=== PATIENT | female | born 1945 | race Caucasian/White ===

== ENCOUNTER → 2017-07-12 09:12 | Outpatient (CLI) | payer MEDICARE, MEDICAID, SELFPAY ==
[2017-07-12 09:50] LABS: Add Manual Diff / Slide Review NO; Basophils Percent Auto 0.5 % (0-2); Eosinophils Percent Auto 4.5 % (2-4); Hematocrit 40.4 % (36-46); Hemoglobin 14.1 g/dL (12.0-16.0); Lymphocytes Percent Auto 38.7 % (25-40); Mean Corpuscular HGB Conc 34.9 % (30-36); Mean Corpuscular Hemoglobin 31.8 PG (26-34); Mean Corpuscular Volume 91.1 fL (80-100); Monocytes Percent Auto 10.8 % (3-14); Neutrophils Absolute Auto 2900 /uL (3000-5900); Neutrophils Percent Auto 45.5 % (50-75); Platelet Count 273 X10^3/uL (150-400); Red Blood Cell Count 4.44 X10^6/uL (4.0-5.2); Red Cell Distribution Width 13.6 % (11.6-14.8); White Blood Cell Count 6.4 X10^3/uL (4.5-11.0)
[2017-07-12 11:25] LABS: Alanine Aminotransferase 31 IU/L (9-52); Albumin 4.3 g/dL (3.5-5.0); Albumin Globulin Ratio 1.3 (1.0-2.8); Alkaline Phosphatase 80 U/L (38-126); Aspartate Aminotransferase 28 IU/L (14-36); BUN Creatinine Ratio 13.8 (6-22); Bilirubin Total 0.7 mg/dL (0.2-1.3); Blood Urea Nitrogen 11 mg/dL (7-17); Calcium 9.7 mg/dL (8.4-10.2); Carbon Dioxide 29 mmol/L (22-32); Chloride 96 mmol/L (98-107); Cholesterol 139 mg/dL (140-199); Estimated Glomerular Filt Rate > 60.0 mL/min (>60); Globulin 3.2 g/dL (1.7-4.1); Glucose 118 mg/dL (80-110); HDL Cholesterol 32 mg/dL (40-60); HEMOLYSIS < 15 (0-50); LDL Cholesterol Calculated 64 mg/dL (<100); Sodium 139 mmol/L (137-145); Total Protein 7.5 g/dL (6.3-8.2); Triglycerides 214 mg/dL (35-150)
[2017-07-12 11:35] LABS: Hemoglobin A1C% w Est Avg Glu 6.6 % (4.0-6.0)
[2017-07-12 12:01] LABS: Thyroid Stimulating Hormone 1.79 uIU/mL (0.47-4.68)
== END ==
PROVIDERS: PCP Family Medicine; Visit Provider Family Medicine
DX: E11.9 Type 2 diabetes mellitus without complications (principal); I10 Essential (primary) hypertension; E78.5 Hyperlipidemia, unspecified
CPT/HCPCS: 36415; 80053; 80061; 83036; 84443; 85025

== ENCOUNTER → 2019-01-23 10:07 | Outpatient (CLI) | payer MEDICARE, MEDICAID, SELFPAY ==
[2019-01-23 11:51] LABS: Add Manual Diff / Slide Review NO; Basophils Absolute Auto 0 /uL (0-100); Basophils Percent Auto 0.6 % (0-2); Eosinophils Absolute Auto 200 /uL (0-450); Eosinophils Percent Auto 3.6 % (2-4); Hematocrit 40.5 % (36-46); Lymphocytes Absolute Auto 2000 /uL (1100-4500); Lymphocytes Percent Auto 32.7 % (25-40); Mean Corpuscular HGB Conc 34.5 % (30-36); Mean Corpuscular Hemoglobin 31.7 PG (26-34); Mean Corpuscular Volume 91.8 fL (80-100); Monocytes Absolute Auto 600 /uL (0-900); Monocytes Percent Auto 10.4 % (3-14); Neutrophils Absolute Auto 3200 /uL (1500-7000); Neutrophils Percent Auto 52.7 % (50-75); Platelet Count 276 X10^3/uL (150-400); Red Blood Cell Count 4.41 X10^6/uL (4.0-5.2); White Blood Cell Count 6.1 X10^3/uL (4.5-11.0)
[2019-01-23 12:04] LABS: Hemoglobin A1C% w Est Avg Glu 6.1 % (4.0-6.0)
[2019-01-23 12:15] LABS: Alanine Aminotransferase 21 IU/L (<35); Albumin 4.5 g/dL (3.5-5.0); Albumin Globulin Ratio 1.7 (1.0-2.8); Alkaline Phosphatase 63 U/L (38-126); Aspartate Aminotransferase 27 IU/L (14-36); BUN Creatinine Ratio 18.6 (6-22); Bilirubin Total 0.7 mg/dL (0.2-1.3); Blood Urea Nitrogen 13 mg/dL (7-17); Calcium 9.8 mg/dL (8.4-10.2); Carbon Dioxide 30 mmol/L (22-32); Chloride 93 mmol/L (98-107); Cholesterol 159 mg/dL (140-199); Estimated Glomerular Filt Rate > 60.0 mL/min (>60); Globulin 2.6 g/dL (1.7-4.1); Glucose 110 mg/dL (80-110); HDL Cholesterol 38 mg/dL (40-60); HEMOLYSIS < 15 (0-50); LDL Cholesterol Calculated 72 mg/dL (<100); Potassium 4.2 mmol/L (3.4-5.1); Sodium 133 mmol/L (137-145); Total Protein 7.1 g/dL (6.3-8.2); Triglycerides 243 mg/dL (35-150)
[2019-01-23 12:46] LABS: Thyroid Stimulating Hormone 1.09 uIU/mL (0.47-4.68)
[2019-01-23 15:15] LABS: Creatinine Urine Random 78.1 mg/dL
[2019-01-23 15:18] LABS: Microalbumi Creatinin Ratio Ur 7.6 ug/mg CR (<30); Microalbumin Urine Random < 0.6 mg/dL (0-1.6)
== END ==
PROVIDERS: PCP Family Medicine; Visit Provider Family Medicine
DX: Z13.29 Encounter for screening for other suspected endocrine disorder (principal); E11.9 Type 2 diabetes mellitus without complications; E78.5 Hyperlipidemia, unspecified; I10 Essential (primary) hypertension
CPT/HCPCS: 36415; 80053; 80061; 82043; 82570; 83036; 84443; 85025

== ENCOUNTER → 2019-11-05 07:16 | Outpatient (CLI) | payer MEDICARE, MEDICAID, SELFPAY ==
[2019-11-05 08:11] LABS: Hemoglobin A1C% w Est Avg Glu 6.7 % (4.0-6.0)
[2019-11-05 08:18] LABS: Add Manual Diff / Slide Review NO; Basophils Absolute Auto 0 /uL (0-100); Basophils Percent Auto 0.6 % (0-2); Eosinophils Absolute Auto 200 /uL (0-450); Eosinophils Percent Auto 3.6 % (2-4); Hemoglobin 13.8 g/dL (12.0-16.0); Lymphocytes Absolute Auto 2200 /uL (1100-4500); Lymphocytes Percent Auto 34.9 % (25-40); Mean Corpuscular HGB Conc 34.5 % (30-36); Mean Corpuscular Hemoglobin 32.1 PG (26-34); Monocytes Absolute Auto 700 /uL (0-900); Monocytes Percent Auto 10.2 % (3-14); Neutrophils Absolute Auto 3300 /uL (1500-7000); Neutrophils Percent Auto 50.7 % (50-75); Platelet Count 260 X10^3/uL (150-400); Red Cell Distribution Width 13.6 % (11.6-14.8); White Blood Cell Count 6.4 X10^3/uL (4.5-11.0)
[2019-11-05 08:21] LABS: Alanine Aminotransferase 24 IU/L (<35); Albumin 4.4 g/dL (3.5-5.0); Albumin Globulin Ratio 1.6 (1.0-2.8); Alkaline Phosphatase 73 U/L (38-126); Aspartate Aminotransferase 26 IU/L (14-36); Bilirubin Total 0.8 mg/dL (0.2-1.3); Blood Urea Nitrogen 10 mg/dL (7-17); Calcium 9.3 mg/dL (8.4-10.2); Carbon Dioxide 30 mmol/L (22-32); Chloride 93 mmol/L (98-107); Cholesterol 121 mg/dL (140-199); Estimated Glomerular Filt Rate > 60.0 mL/min (>60); Globulin 2.8 g/dL (1.7-4.1); Glucose 141 mg/dL (80-110); HDL Cholesterol 36 mg/dL (40-60); HEMOLYSIS < 15 (0-50); LDL Cholesterol Calculated 39 mg/dL (<100); Potassium 3.6 mmol/L (3.4-5.1); Sodium 134 mmol/L (137-145); Total Protein 7.2 g/dL (6.3-8.2); Triglycerides 228 mg/dL (35-150)
[2019-11-05 08:52] LABS: Thyroid Stimulating Hormone 1.85 uIU/mL (0.47-4.68)
[2019-11-05 10:38] LABS: Creatinine Urine Random 167.5 mg/dL
[2019-11-05 10:44] LABS: Microalbumin Urine Random < 0.6 mg/dL (0-1.6)
== END ==
PROVIDERS: PCP Family Medicine; Referring Provider Family Medicine; Visit Provider Family Medicine
DX: E11.9 Type 2 diabetes mellitus without complications (principal); I10 Essential (primary) hypertension; Z86.73 Personal history of transient ischemic attack (TIA), and cerebral infarction without residual deficits
CPT/HCPCS: 36415; 80053; 80061; 82043; 82570; 83036; 84443; 85025

== ENCOUNTER → 2020-01-26 07:45 | Outpatient (CLI) | payer MEDICARE, MEDICAID, SELFPAY ==
[2020-01-26 09:15] LABS: Hemoglobin A1C% w Est Avg Glu 6.5 % (4.0-6.0)
[2020-01-26 09:29] LABS: BUN Creatinine Ratio 23.9 (6-22); Blood Urea Nitrogen 16 mg/dL (7-17); Estimated Glomerular Filt Rate > 60.0 mL/min (>60)
== END ==
PROVIDERS: PCP Family Medicine; Referring Provider Neurological Surgery; Visit Provider Neurological Surgery
DX: E11.9 Type 2 diabetes mellitus without complications (principal)
CPT/HCPCS: 82565; 83036; 84520

== ENCOUNTER → 2020-01-28 15:10 | Outpatient (CLI) | payer MEDICARE, MEDICAID, SELFPAY ==
--- NOTE | 2020-01-28 15:13 | DI.CT.S_ITS ---
PROCEDURE: CT ANGIO HEAD AND NECK INDICATIONS: Cerebral aneurysm, nonruptured TECHNIQUE: Pre-contrast 4.5 mm thick sections acquired from the foramen magnum to the vertex. After the administration of intravenous contrast, 1 mm thick sections acquired from the aortic arch through the [place] of Wu. Post-contrast 4.5 mm thick sections then re-acquired from the foramen magnum to the vertex. 3-dimensional tavqcrc-hgdzrggqb-igqjzbmgey (MIP) and/or volume rendering reformats were acquired of the central intracranial vasculature and neck separately. COMPARISON: [facility], CT, ANGIO HEAD, 11/12/2016, 15:42. [facility], CT, HEAD WITHOUT CONTRAST, 12/08/2016, 7:30. FINDINGS: Image quality: Excellent. BRAIN: CSF spaces: Ventricles are normal in size and shape. Basal cisterns are patent. No extra-axial fluid collections. Brain: No midline shift. No intracranial bleeds or masses. Herron-white matter interface appears intact. Skull and face: Left-sided craniotomy changes are seen. Calvarium and facial bones appear intact, without suspicious lesions. Orbits appear normal. Sinuses: Sinuses and mastoids are clear. HEAD CT ANGIOGRAPHY: Anterior circulation: The right intracranial internal carotid artery is within normal limits. The left intracranial internal carotid artery demonstrates no significant flow. The flow within the paired anterior cerebral arteries is normal and symmetric. The flow within the middle cerebral arteries is asymmetric and prominently decreased on the left.. The anterior communicating artery is seen. No aneurysms are seen. Posterior circulation: Visualized portions of the vertebral arteries demonstrate normal caliber, and join to form a normal appearing basilar artery. Flow within the posterior cerebral arteries is normal and symmetric. No aneurysms are seen. NECK CT ANGIOGRAPHY: Carotid system: The great vessels demonstrate a conventional anatomy as they arise from the aortic arch. The origins of the common carotid arteries appear patent. The common carotid arteries demonstrate normal caliber and courses. There is complete occlusion of the left internal carotid artery just beyond its origin. There is a thrombosed left internal carotid artery stent. Atherosclerotic irregularity is seen involving the right proximal internal carotid artery, yet without a hemodynamically significant stenosis seen. The more distal right internal carotid artery demonstrates tortuosity. Posterior circulation: The origins of the vertebral arteries both appear widely patent. The more superior extracranial portions of both vertebral arteries also demonstrate normal courses and calibers. They join to form a normal appearing basilar artery. Soft tissues: Visualized neck soft tissues demonstrate no suspicious abnormalities. Bones: No suspicious bony lesions. Visualized cervical spine appears normally aligned. Prominent lower cervical spine degenerative changes are seen. IMPRESSION: Complete occlusion of the left internal carotid artery just beyond its origin. Asymmetric flow within the middle cerebral arteries, prominently decreased on the left. Prominent lower cervical spine degenerative changes are noted. Any quantitative measurements of stenosis were performed using NASCET criteria. Dictated by: Rolando Brito M.D. on 01/28/2020 at 15:50 Approved by: Rolando Brito M.D. on 01/28/2020 at 15:54
== END ==
PROVIDERS: PCP Family Medicine; Referring Provider Neurological Surgery; Visit Provider Neurological Surgery
DX: I67.1 Cerebral aneurysm, nonruptured (principal); I65.22 Occlusion and stenosis of left carotid artery; T82.868A Thrombosis due to vascular prosthetic devices, implants and grafts, initial encounter; M47.812 Spondylosis without myelopathy or radiculopathy, cervical region; Z98.890 Other specified postprocedural states
CPT/HCPCS: 70496; 70498

== ENCOUNTER → 2020-04-16 10:47 | Outpatient (CLI) | payer MEDICARE, MEDICAID, SELFPAY ==
[2020-04-16] MEDS: COVID-19 VACC, Ad26(JANSSEN)/PF 0.5 ML IM (11:08)
== END ==
PROVIDERS: PCP Family Medicine; Visit Provider Internal Medicine
DX: Z23 Encounter for immunization (principal)
CPT/HCPCS: 0031A; 91303

== ENCOUNTER → 2020-06-20 15:09 | Outpatient (CLI) | payer MEDICARE, MEDICAID, SELFPAY ==
--- NOTE | 2020-06-20 15:11 | DI.RAD.S_ITS ---
PROCEDURE: XR LUMBAR SPINE MIN 4V INDICATIONS: low back pain, bilateral hip pain TECHNIQUE: 5 views of the lumbar spine were acquired, including bilateral oblique views. COMPARISON: None. FINDINGS: Bones: 5 nonrib-bearing vertebrae are present. There is normal bony alignment. No vertebral body compression fractures. No suspicious bony lesions. Degenerative disc disease is present along the thoracolumbar junction and lumbosacral spine. There is mild chronic appearing anterior wedging at T11 and moderate T11-T12 disc space narrowing. Minimal degenerative disc height narrowing is present at T12-L1, and moderate such changes seen at L2-L3 and L3-L4 and to a slightly greater degree with slight anterolisthesis at L4-L5. Facet osteoarthritis becomes progressively more prominent from L3 inferiorly and moderately severe at L4-5 and L5-S1. Soft tissues: Overlying bowel gas pattern is normal. No suspicious soft tissue calcifications. Oblique images: No pars defects. IMPRESSION: No acute trauma found. Degenerative disc disease and facet osteoarthritis is moderate in severity overall and becomes progressively more prominent over the lower half of the lumbosacral spine. There is a chronic appearing mild to moderate wedge compression fracture at T11. A comparison plain film is not available that includes this area but it does appear longstanding. Significant spinal and foraminal stenosis likely is present from L4 through S1. Dictated by: Ehsan Sim M.D. on 06/20/2020 at 15:47 Approved by: Ehsan Sim M.D. on 06/20/2020 at 15:50
--- NOTE | 2020-06-20 15:11 | DI.RAD.S_ITS ---
PROCEDURE: XR HIP W PEL IF DONE RYAN MIN 4V INDICATIONS: low back pain, bilateral hip pain TECHNIQUE: AP pelvis with lateral view(s) of the bilateral hip(s). COMPARISON: None. FINDINGS: Bones: No fractures or dislocations. Pelvic ring appears intact. No suspicious bony lesions. Soft tissues: The visualized bowel gas pattern is normal. No suspicious soft tissue calcifications. IMPRESSION: There is a mild degree of joint space narrowing bilaterally symmetric, consistent with degenerative osteoarthritic change and no sign of trauma. Dictated by: Ehsan Sim M.D. on 06/20/2020 at 15:46 Approved by: Ehsan Sim M.D. on 06/20/2020 at 15:46
== END ==
PROVIDERS: PCP Family Medicine; Referring Provider Family Medicine; Visit Provider Family Medicine
DX: M25.551 Pain in right hip (principal); M25.552 Pain in left hip; M54.5 Low back pain; M48.54XA Collapsed vertebra, not elsewhere classified, thoracic region, initial encounter for fracture; M51.36 Other intervertebral disc degeneration, lumbar region; M48.061 Spinal stenosis, lumbar region without neurogenic claudication; M47.816 Spondylosis without myelopathy or radiculopathy, lumbar region; M47.817 Spondylosis without myelopathy or radiculopathy, lumbosacral region
CPT/HCPCS: 72110; 73522

== ENCOUNTER → 2020-07-15 08:36 | Outpatient (CLI) | payer MEDICARE, MEDICAID, SELFPAY ==
[2020-07-15 10:16] LABS: Hemoglobin A1C% w Est Avg Glu 6.5 % (4.0-6.0)
[2020-07-15 10:53] LABS: Alanine Aminotransferase 23 IU/L (<35); Albumin Globulin Ratio 1.5 (1.0-2.8); Alkaline Phosphatase 71 U/L (38-126); Aspartate Aminotransferase 27 IU/L (14-36); BUN Creatinine Ratio 14.3 (6-22); Bilirubin Total 0.5 mg/dL (0.2-1.3); Blood Urea Nitrogen 11 mg/dL (7-17); Calcium 9.7 mg/dL (8.4-10.2); Carbon Dioxide 29 mmol/L (22-32); Chloride 96 mmol/L (98-107); Cholesterol 118 mg/dL (140-199); Estimated Glomerular Filt Rate > 60.0 mL/min (>60); Globulin 2.6 g/dL (1.7-4.1); Glucose 113 mg/dL (80-110); HDL Cholesterol 38 mg/dL (40-60); HEMOLYSIS < 15 (0-50); LDL Cholesterol Calculated 51 mg/dL (<100); Sodium 134 mmol/L (137-145); Total Protein 6.6 g/dL (6.3-8.2); Triglycerides 147 mg/dL (35-150)
[2020-07-15 11:54] LABS: Creatinine Urine Random 169.4 mg/dL
[2020-07-15 11:58] LABS: Microalbumi Creatinin Ratio Ur 4.7 ug/mg CR (<30); Microalbumin Urine Random 0.8 mg/dL (0-1.6)
== END ==
PROVIDERS: PCP Family Medicine; Referring Provider Family Medicine; Visit Provider Family Medicine
DX: E11.9 Type 2 diabetes mellitus without complications (principal)
CPT/HCPCS: 36415; 80053; 80061; 82043; 82570; 83036

== ENCOUNTER → 2020-09-04 09:26 | Outpatient (CLI) | payer MEDICARE, MEDICAID, SELFPAY | PROVIDERS: PCP Family Medicine; Referring Provider Physical Medicine & Rehabilitation; Visit Provider Physical Medicine & Rehabilitation | DX: M43.16 Spondylolisthesis, lumbar region (principal); Z53.8 Procedure and treatment not carried out for other reasons ==

== ENCOUNTER → 2020-09-08 17:19 | Outpatient (CLI) | payer MEDICARE, MEDICAID, SELFPAY ==
--- NOTE | 2020-09-08 17:22 | DI.MRI.S_ITS ---
PROCEDURE: MR LUMBAR SPINE WO CON INDICATIONS: SPONDYLOLISTTHESIS LUMBAR AREA TECHNIQUE: Noncontrast sagittal T1 spin echo and T2 fast echo, sagittal STIR, axial T1 and T2 fast spin echo through the lumbar spine. In cases with scoliosis, additional coronal T2 fast spin echo may be performed. COMPARISON: None. FINDINGS: Image quality: Excellent. Alignment and Curvature: There is mild L4-L5 anterolisthesis secondary to facet hypertrophy. Bone Marrow: Reactive endplate changes noted adjacent the L2-L3, L3-L4 and L4-L5 discs. No acute vertebral body compression fractures. Spinal Cord: Conus medullaris terminates at the L1 level. Visualized cord demonstrates normal signal and size. Paraspinous Soft Tissues: No paravertebral masses. T12-L1: Loss of disc signal. Mild, diffuse disc bulge. Mild narrowing of the central canal. No neural foraminal narrowing. No neural compression. L1-L2: Loss of disc signal. Moderate, diffuse disc bulge. Mild bilateral facet hypertrophy. Mild to moderate narrowing of the central canal. Mild bilateral neural foraminal narrowing. No neural compression. L2-L3: Loss of disc signal and height. Moderate, diffuse disc bulge. Left central disc extrusion. Mild bilateral facet hypertrophy. Severe narrowing of the central canal with compression of the nerve roots of the cauda equina. Moderate bilateral neural foraminal narrowing. L3-L4: Loss of disc signal and height. Mild, diffuse disc bulge. Mild bilateral facet hypertrophy. Mild to moderate narrowing of the central canal. Moderate bilateral neural foraminal narrowing. No neural compression. L4-L5: Loss of disc signal and height. Mild, diffuse disc bulge. Severe bilateral facet hypertrophy. Moderate ligamentum flavum hypertrophy. Severe narrowing of the central canal with compression of the nerve roots of the cauda equina. Mild to moderate bilateral neural foraminal narrowing. L5-S1: Loss of disc signal. Mild, diffuse disc bulge. Moderate bilateral facet hypertrophy. No central stenosis. Mild bilateral neural foraminal narrowing. No neural compression. IMPRESSION: 1. Grade 1 L4-L5 degenerative spondylolisthesis. 2. Multilevel degenerative disc disease. 3. Multilevel facet arthropathy. 4. Severe L2-L3 and L4-L5 central canal narrowing with compression of the nerve roots of the cauda equina. 5. No severe neural foraminal narrowing. 6. Large left central L2-L3 disc extrusion which causes severe narrowing of the central canal with compression of the traversing nerve roots of the cauda equina. Dictated by: Lorrie Alex MD, PhD on 09/09/2020 at 10:53 Approved by: Lorrie Alex MD, PhD on 09/09/2020 at 10:58
== END ==
PROVIDERS: PCP Family Medicine; Referring Provider Physical Medicine & Rehabilitation; Visit Provider Physical Medicine & Rehabilitation
DX: M43.16 Spondylolisthesis, lumbar region (principal); M51.36 Other intervertebral disc degeneration, lumbar region; M51.37 Other intervertebral disc degeneration, lumbosacral region; M47.816 Spondylosis without myelopathy or radiculopathy, lumbar region; M47.817 Spondylosis without myelopathy or radiculopathy, lumbosacral region; M48.061 Spinal stenosis, lumbar region without neurogenic claudication; M48.07 Spinal stenosis, lumbosacral region; M51.26 Other intervertebral disc displacement, lumbar region
CPT/HCPCS: 72148

== ENCOUNTER → 2020-09-22 07:46 | Outpatient (CLI) | payer MEDICARE, MEDICAID, SELFPAY ==
[2020-09-22 12:06] LABS: COVID19 -Nasal RAPID Negative (Negative)
== END ==
PROVIDERS: PCP Family Medicine; Visit Provider Physical Medicine & Rehabilitation
DX: Z20.822 Contact with and (suspected) exposure to COVID-19 (principal)
CPT/HCPCS: 87635; C9803

== ENCOUNTER 2020-09-23 07:17 | Outpatient (CLI) | payer MEDICARE, MEDICAID, SELFPAY ==
[2020-09-23] VITALS (11 sets, daily range): BP systolic 133–172; BP diastolic 63–92; PULSE 24–89; RESP 11–96; TEMP 36.2; O2SAT 95–100
--- NOTE | 2020-09-23 07:20 | DI.RAD.S_ITS ---
PROCEDURE: PAIN L/S TRANSFORAM INJECT RYAN COMPARISON: None. INDICATIONS: SPONDYLOSIS FINDINGS: Needle tip localization bilaterally for L2-L3 transforaminal epidural steroid injection. IMPRESSION: Successful needle tip localization as discussed, for transforaminal epidural steroid injection. Dictated by: Ehsan Sim M.D. on 09/23/2020 at 9:04 Approved by: Ehsan Sim M.D. on 09/23/2020 at 9:04
[2020-09-23] MEDS: MIDAZOLAM 5 MG/5 ML VIAL IV (08:15)
[2020-09-23] MEDS: fentaNYL 100 MCG/2 ML INJ 50 MCG IV (08:15)
[2020-09-23] MEDS: IOPAMIDOL 15 ML VIAL 3 ML INJ (08:24)
[2020-09-23] MEDS: BETAMETHASONE 30 MG/5 ML MDV 12 MG INJ (08:25)
[2020-09-23] MEDS: DEXAMETHASONE 10 MG/ML VIAL 20 MG INJ (08:25)
[2020-09-23] MEDS: BUPIVACAINE 0.25% (PF) VIAL 2 ML INJ (08:25)
[2020-09-23] MEDS: LIDOCAINE 1% 20 ML 5 ML INJ (08:25)
--- NOTE | 2020-09-23 08:39 | PM.PROC.IR.1 ---
Date/Time/Diagnoses Date of procedure: 09/23/20 Time of procedure: 08:39 Pre-procedure diagnosis: 1. FORAMINAL STENOSIS WITH LE SYMPTOMS Post-procedure diagnosis: same Procedure Notes Procedure: 1. FLUOROSCOPICALLY GUIDED CONTRAST CONTROLLED TRANSFORAMINAL EPIDURAL STEROID INJECTION - BILATERAL L2/3 TFESI Indications: Elsi is referred by Dr. Toth for treatment of Foraminal Stenosis with bilateral LE Symptoms Physician: Reza Stein Total Fluoroscopy time (seconds): 15 Total sedation minutes: 19 Complications: none Procedure in detail & Post-procedure care: FINDINGS Foraminal Nerve Root Compression secondary to disc disease and facet hypertrophy DESCRIPTION OF PROCEDURE Following review of allergy and review of potential side effects and complications, including, but not necessarily limited to, infection, allergic reaction, local tissue breakdown, stroke, temporary or permanent nerve injury, paralysis, and possible , the patient indicated that the patient understood and agreed to proceed. An informed consent document was signed by the patient, witnessed by a nurse, and placed in the patient's chart. Additionally, other treatment options including medications, modalities, and physical therapy were reviewed with the patient. After review of previous anaesthesic history and IV conscious sedation the patient was deemed safe to proceed with today?s procedure with IV conscious sedation as ASA class II designation. Safety time-out was performed to confirm patient ID, procedure to be performed and site of procedure. IV sedation was accomplished with a combination of 2mg of Versed and 50mcg of Fentanyl was administered by the RN after DO order, titrated to patient comfort during the course of the procedure while the patient remained responsive to all verbal commands In the prone position following sterile prep and drape of the lumbar region, the right L2/3 posterior neuroforamen was identified fluoroscopically. The skin was anesthetized via a 25-gauge 1.5-inch needle with 1% lidocaine solution. At this point, a 25-gauge 3.5-inch spinal needle was atraumatically introduced and advanced under fluoroscopic guidance through the posterior right L2/3 neuroforamen to approximately the anterior aspect of the canal. Depth was confirmed on lateral view. Following negative aspiration, injection of approximately 1.5cc of Isovue 200 under live fluoroscopy in the AP view confirmed excellent flow along the nerve root, into the epidural space without vascular or intrathecal uptake observed Radiological data, including multiple fluoroscopic views of the lumbosacral spine, reveal a spinal needle at the right L2/3 posterior neuroforamen. Subsequent views show flow of contrast material flowing superiorly and inferiorly along the nerve root confirming epidural flow. Subsequently, a test dose of 1.5cc of 1% lidocaine solution was administered and patient was observed for two minutes for signs or symptoms of complications, including abdominal pain, shortness of breath, bilateral upper or lower extremity weakness, nausea and vomiting, prior to steroid injection. At this point, a total of 3cc or 20mg of dexamethasone and 6mg betamethasone was injected without incident. Attention was then refocused to the left L2/3 level where the identical procedure was replicated. The procedure tolerated the procedure well without signs or symptoms of complications prior to transfer to the recovery area continued monitoring without incident. The patient was then transferred to the recovery area where they were observed for an appropriate time after the injection. The patient reported a VAS score of 8 prior to the procedure and a post-procedure VAS of 0. POST OP INSTRUCTIONS The patient was provided a Pain Log to continue to record their response to the target-specific procedure prior to follow-up visit with their referring physician. Additionally, specific post-injection care instructions and a contact number to our office were provided if concerns arise regarding possible complications associated with the procedure are suspected.
--- NOTE | 2020-09-23 10:04 | PC.NURSE ---
Pt experiences numbness to BLE and is unable to ambulated without a 2PA. Pt was assisted to the ground by Minnie Martinez CNA at approx 0935 after an attempt was made to try to have pt march in place and ambulate a few steps. This rn aided in returning her to her chair. We will continue q15 min attempts.
--- NOTE | 2020-09-23 13:16 | PC.NURSE ---
This is a continuation of the note timed 1004. At 1045, pt was able to move herself to a standing position, walk in place and take several steps forward and back to . Pt was cleared for discharge at this point
== END 2020-09-23 11:09 | disposition home or self-care (01) ==
LOC: RAD 07:19
PROVIDERS: PCP Family Medicine; Referring Provider Physical Medicine & Rehabilitation; Visit Provider Physical Medicine & Rehabilitation
DX: M48.061 Spinal stenosis, lumbar region without neurogenic claudication (principal); M51.16 Intervertebral disc disorders with radiculopathy, lumbar region
CPT/HCPCS: 64483; 99152; J0702; J1100; J2250; J3010

== ENCOUNTER → 2020-10-20 10:32 | Outpatient (CLI) | payer MEDICARE, MEDICAID, SELFPAY ==
[2020-10-20 14:59] LABS: COVID19 -Nasal RAPID Negative (Negative)
== END ==
PROVIDERS: PCP Family Medicine; Visit Provider Physical Medicine & Rehabilitation
DX: Z20.822 Contact with and (suspected) exposure to COVID-19 (principal)
CPT/HCPCS: 87635; C9803

== ENCOUNTER 2020-10-21 14:32 | Outpatient (CLI) | payer MEDICARE, MEDICAID, SELFPAY ==
[2020-10-21] VITALS (7 sets, daily range): BP systolic 100–141; BP diastolic 55–86; PULSE 76–85; RESP 12–26; TEMP 36.2; O2SAT 92–100
--- NOTE | 2020-10-21 14:33 | DI.RAD.S_ITS ---
PROCEDURE: PAIN L INTERLAMINAR/CAUDAL INJ INDICATIONS: SPONDYLOSIS COMPARISON: [facility], XA, PAIN L/S TRANSFORAM INJECT RYAN, 09/23/2020, 8:23. FINDINGS: Fluoroscopic spot filming was performed to verify placement of a spinal needle at the L2-L3 level, as labeled on the films. Appropriate location of the needle tip was confirmed by injection of iodinated contrast. IMPRESSION: Intraprocedural examination within normal limits. Dictated by: Rolando Brito M.D. on 10/21/2020 at 15:53 Approved by: Rolando Brito M.D. on 10/21/2020 at 15:54
[2020-10-21] MEDS: MIDAZOLAM 5 MG/5 ML VIAL IV (15:10)
[2020-10-21] MEDS: fentaNYL 100 MCG/2 ML INJ 50 MCG IV (15:10)
[2020-10-21] MEDS: BUPIVACAINE 0.25% (PF) VIAL 2 ML INJ (15:14)
[2020-10-21] MEDS: IOPAMIDOL 15 ML VIAL 3 ML INJ (15:14)
[2020-10-21] MEDS: DEXAMETHASONE 10 MG/ML VIAL 20 MG INJ (15:15)
[2020-10-21] MEDS: BETAMETHASONE 30 MG/5 ML MDV 6 MG INJ (15:15)
--- NOTE | 2020-10-21 15:22 | P.PCN_ITS ---
Date/Time/Diagnoses Date of procedure: 10/21/20 Time of procedure: 15:22 Pre-procedure diagnosis: 1. HNP WITH RADICULAR FEATURES, 2. MULTILEVEL CENTRAL STENOSIS, Post-procedure diagnosis: same Procedure Notes Procedure: 1. FLUOROSCOPICALLY GUIDED CONTRAST CONTROLLED INTERLAMINAR EPIDURAL STEROID INJECTION - L2/3 Indications: Elsi is referred by Dr. Toth for treatment of Bilateral Foraminal Stenosis L>R LE symptoms. Physician: Reza Stein Total Fluoroscopy time (seconds): 7 Total sedation minutes: 10 Complications: none Procedure in detail & Post-procedure care: FINDINGS Multilevel Central Spinal Stenosis with Nerve Root Compression DESCRIPTION OF PROCEDURE Fluoroscopically guided, contrast-controlled L2/3 translaminar epidural steroid injection. Following review of allergy and review of potential side effects and complications, including, but not necessarily limited to, infection, allergic reaction, local tissue breakdown, temporary as well as permanent nerve injury, paralysis, stroke and possible , the patient indicated that the patient understood and agreed to proceed. An informed consent document was signed by the patient, witnessed by a nurse, and placed in the patient's chart. Additionally, other treatment options including modalities, medications, and physical therapy were reviewed with the patient. After review of previous anaesthesic history and IV conscious sedation the patient was deemed safe to proceed with today?s procedure with IV conscious sedation as ASA class II designation. Safety time-out was performed to confirm patient ID, procedure to be performed and site of procedure. IV sedation was accomplished with a combination of 2mg Versed and 50mcg of Fentanyl administered by the RN after DO order, titrated to patient comfort during the course of the procedure while the patient remained responsive to all verbal commands. In the prone position, following sterile prep and drape of the lumbar region,the L2/3 translaminar space was identified fluoroscopically. The skin was anesthetized via a 25-gauge, 1.5-inch needle with 1% lidocaine solution. At this point, a 22-gauge short bevel spinal needle was atraumatically introduced and advanced under fluoroscopic guidance into the region of the L2/3 translaminar space. Depth was confirmed on lateral view. Radiological data, including multiple fluoroscopic views of the lumbar spine, reveal a spinal needle at the L2/3 translaminar space. Lateral views then show placement of the needle in the epidural space. Subsequent views show contrast material flowing superiorly and inferiorly in the epidural space. No vascular or intrathecal uptake is observed. At this point, using loss of resistance technique with saline and air, the epidural space was entered. This was confirmed following negative aspiration with injection of approximately 1.5 cc of Isovue 200, showing excellent epidural flow without vascular or intrathecal uptake. At this point, 1 cc of 1% lidocaine solution combined with 3cc or 20mg of dexamethasone and 12mg of betamethasone was injected without incident. The patient tolerated the procedure well without signs or symptoms of compl ications prior to transfer to the recovery area continued monitoring without incident. The patient was then transferred to the recovery area where they were observed for an appropriate period of time after the injection. The patient reported a VAS score of 6 prior to the procedure and a post-procedure VAS of 0. POST OP INSTRUCTIONS The patient was provided a Pain Log to continue to record their response to the target-specific procedure prior to follow-up visit with their referring physician. Additionally, specific post-injection care instructions and a contact number to our office were provided if concerns arise regarding possible complications associated with the procedure are suspected.
== END 2020-10-21 15:48 | disposition home or self-care (01) ==
LOC: RAD 14:33
PROVIDERS: PCP Family Medicine; Referring Provider Physical Medicine & Rehabilitation; Visit Provider Physical Medicine & Rehabilitation
DX: M51.26 Other intervertebral disc displacement, lumbar region (principal)
CPT/HCPCS: 62323; 99152; J0702; J1100; J2250; J3010

== ENCOUNTER → 2020-12-17 08:25 | Outpatient (CLI) | payer MEDICARE, MEDICAID, SELFPAY ==
[2020-12-17 10:01] LABS: Add Manual Diff / Slide Review NO; Basophils Absolute Auto 0 /uL (0-100); Basophils Percent Auto 0.9 % (0-2); Eosinophils Absolute Auto 200 /uL (0-450); Eosinophils Percent Auto 3.6 % (2-4); Hematocrit 40.4 % (36-46); Hemoglobin 13.7 g/dL (12.0-16.0); Hemoglobin A1C% w Est Avg Glu 6.2 % (4.0-6.0); Lymphocytes Absolute Auto 2300 /uL (1100-4500); Lymphocytes Percent Auto 39.2 % (25-40); Mean Corpuscular HGB Conc 33.9 % (30-36); Mean Corpuscular Hemoglobin 31.9 PG (26-34); Mean Corpuscular Volume 93.9 fL (80-100); Monocytes Absolute Auto 700 /uL (0-900); Monocytes Percent Auto 12.1 % (3-14); Neutrophils Absolute Auto 2600 /uL (1500-7000); Neutrophils Percent Auto 44.2 % (50-75); Platelet Count 287 X10^3/uL (150-400); Red Cell Distribution Width 13.5 % (11.6-14.8); White Blood Cell Count 5.8 X10^3/uL (4.5-11.0)
[2020-12-17 10:27] LABS: Alanine Aminotransferase 27 IU/L (<35); Albumin 4.8 g/dL (3.5-5.0); Albumin Globulin Ratio 1.8 (1.0-2.8); Alkaline Phosphatase 52 U/L (38-126); Aspartate Aminotransferase 35 IU/L (14-36); BUN Creatinine Ratio 17.3 (6-22); Bilirubin Total 0.8 mg/dL (0.2-1.3); Blood Urea Nitrogen 14 mg/dL (7-17); Calcium 9.9 mg/dL (8.4-10.2); Carbon Dioxide 26 mmol/L (22-32); Chloride 90 mmol/L (98-107); Estimated Glomerular Filt Rate > 60.0 mL/min (>60); Globulin 2.6 g/dL (1.7-4.1); Glucose 106 mg/dL (80-110); HEMOLYSIS 48 (0-50); Potassium 4.8 mmol/L (3.4-5.1); Sodium 128 mmol/L (137-145); Total Protein 7.4 g/dL (6.3-8.2)
== END ==
PROVIDERS: PCP Family Medicine; Referring Provider Family Medicine; Visit Provider Family Medicine
DX: E11.9 Type 2 diabetes mellitus without complications (principal); Z01.818 Encounter for other preprocedural examination
CPT/HCPCS: 36415; 80053; 83036; 85025

== ENCOUNTER 2021-05-16 18:45 | Inpatient (IN) | payer MEDICARE, MEDICAID, SELFPAY ==
[2021-05-16] VITALS (14 sets, daily range): BP systolic 150–196; BP diastolic 63–88; PULSE 64–84; RESP 18; TEMP 35.9–36.6; O2SAT 93–99; BMI 35.6; BMI 30.9
--- NOTE | 2021-05-16 19:11 | ED_ITS ---
HPI - Neuro Symptoms/Deficit General Chief Complaint: Neuro Symptoms/Deficit Stated Complaint: poss. stroke Time Seen by Provider: 05/16/21 19:05 Source: patient and old records reviewed Mode of arrival: Ambulatory Limitations: no limitations History of Present Illness HPI Narrative: This is a 76-year-old female comes with complaint of loss of vision in her left eye for approximately 1 minute this morning as well as persistent but waxing and waning intensity of expressive aphasia. Patient states the 1st episode was about 945 this morning or she had loss of vision for about a minute. She then noticed about 2 hours later difficulty expressing herself she knows what she wants to say but has trouble finding words and getting them out. She can still talk but has to search were sometimes can not find the words. She denies any slurred speech. She did have a little bit of a headache earlier it has improved . She denies any weakness, no numbness, tingling or loss of sensation. No gait changes. She denies any chest pain or shortness of breath. No nausea or vomiting. No issues with bowel movements or urination. She had a fall last night while getting up to urinate but denies hitting head. She states she occasionally does fall down. 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 She had 2 surgeries to treat this 1 to establish a bypass and then to have the aneurysm clipped. She was released from neuro surgery and the surgery was performed at [facility]. She does occasionally get migraines. She is on medication for hypertension, dyslipidemia, diabetes, gabapentin for neuropathy, Celebrex and an 81 mg aspirin daily. She has had all her medications today except for her statin gabapentin. She has had hysterectomy, cholecystectomy, dental surgery, cataract surgery and her aneurysm surgery x2. No known drug allergies. Primary care is Dr. Abiel Knutson. No tobacco, alcohol or illicit. Related Data Home Medications Medication Instructions Recorded Confirmed aspirin 81 mg tablet,delayed 81 mg PO QDAY #0 11/10/15 05/16/21 release cyanocobalamin (vitamin B-12) 5,000 mcg PO DAILY 11/07/19 05/16/21 5,000 mcg capsule acetaminophen 500 mg capsule 500 mg PO Q6H 09/01/20 05/16/21 metformin 500 mg tablet,extended 500 mg PO BID 05/16/21 05/16/21 release 24 hr Previous Rx's Medication Instructions Recorded albuterol sulfate 90 mcg/actuation 2 puff INHALATION Q4-6H PRN #8.5 08/06/20 aerosol inhaler (ProAir HFA) gram atorvastatin 40 mg tablet See Rx Instructions .ROUTE 01/19/21 .COMPLEX #90 tab lisinopril 10 mg tablet 30 mg PO DAILY #90 tab 01/19/21 nystatin 100,000 unit/gram topical 1 applic TOPICAL BID #30 g 01/29/21 cream gabapentin 300 mg capsule 300 mg PO .COMPLEX #90 cap 04/06/21 celecoxib 200 mg capsule (Celebrex) 200 mg PO DAILY #30 cap 04/13/21 Allergies Allergy/AdvReac Type Severity Reaction Status Date / Time clopidogrel [From PLAVIX] Allergy Mild thickened Verified 05/16/21 19:28 blood morphine [MORPHINE] Allergy Unknown ITCHING Verified 05/16/21 19:28 oxycodone [From PERCOCET] AdvReac Unknown HIGH BLOOD Verified 05/16/21 19:28 PRESSURE Review of Systems Review of Systems ROS Unobtainable: All systems reviewed & are unremarkable except as noted in HPI and below Patient History Medical History Aneurysm Asthma Cataract (2011) Cervical cancer (1975) Chronic back pain (2009) Chronic headaches Colon polyps (2012) CTS (carpal tunnel syndrome) (2014) Drug resistance Herniated nucleus pulposus, L2-3 left Hypertension (1974) Migraines Spondylolisthesis at L4-L5 level Stroke (2014) T11 vertebral fracture T12 burst fracture Vertigo (2014) Surgical History Anesthesia complication History of cataract removal with insertion of prosthetic lens (2008) Status post delivery (07/09/75) Status post cholecystectomy (1991) Status post hysterectomy (1976) Family History Brother Diabetes mellitus Heart disease Essential hypertension High cholesterol Lung cancer Father Heart disease Essential hypertension Mother Diabetes mellitus Cerebrovascular accident (CVA), unspecified mechanism Heart attack Sister Diabetes mellitus Heart disease Essential hypertension High cholesterol Kidney failure Grandfather No problems noted. Grandmother No problems noted. Grandfather No problems noted. Grandmother No problems noted. Social History marital status: household members: none pets and animals: No education level: high school mikey/sabianist: Yazdanism other: computer games,play with grandkids,cooking seatbelt use: always water heater temp set < 120 deg: Yes working smoke detector in home: Yes fire extinguisher in home: No carbon monox detector in home: No firearms in home: Yes Smoking Status: Former smoker alcohol intake: former during the past year weight has: remained stable well-balanced diet: about half the time daily servings fruits/ve-4 caffeine: Yes eating out: 4 or more times/week Type(s) of exercise: walking frequency: 3-4 times per week duration: 60-90 minutes/day Smoking Status: Former smoker Exam Narrative Exam Narrative: GEN: well nourished, well appearing female, alert and oriented x 3, patient appears to be in mild distress. HEENT: Atraumatic, pupils are equal round reactive to light, extraocular movements are intact, nares are clear, TMs are clear with no fluid, there is no conjunctival pallor. Throat is clear without any exudates, erythema, tonsillar enlargement or uvular deviation, no facial droop. HEART: Regular rate and rhythm without murmur, clicks, rubs. Pulses are equal i n upper and lower extremities LUNGS:Lungs clear to auscultation, no wheezes, rales, crackles, chest moves symmetrically ABD:bowel sounds normal, soft, non-tender, no guarding, rebound, rigidity, no ma sses noted, no hepatosplenomegaly :No CVA tenderness MSCL: Non-tender, no muscle atrophy, muscles strength 5/5 upper and lower extremities, full range of motion, normal gait NEURO:CN 2-12 intact, sensation normal, finger nose finger test normal, heel jean-baptiste test normal, positive for mild expressive aphasia. No dysarthria appreciated. SKIN: No rash, erythema or skin changes noted. Initial Vital Signs Initial Vital Signs: Vital Signs Temperature 96.7 F L 05/16/21 19:07 Pulse Rate 83 05/16/21 19:07 Respiratory Rate 18 05/16/21 19:07 Blood Pressure 196/88 H 04/09/22 19:07 Pulse Oximetry 97 05/16/21 19:07 Scores NIH Stroke Scale Level of Conciousness: Alert, keenly responsive Ask month/age: Answers both questions correctly. Open/close eyes, close hand: Performs both tasks correctly Best gaze horizontal: Normal Visual marshall: No visual loss Facial palsy: Normal symetrical movement Left arm drift: No drift for full 10 sec Right arm drift: No drift for full 10 sec Left leg drift: No drift for full 5 sec Right leg drift: No drift for full 5 sec Limb ataxia: Absent Sensory on face/arms/legs: Normal, no sensory loss Best language: Mild to moderate, slurs some words Dysarthria: Mild to mod,some slurring Extinction or inattention: No abnormality Total NIH Stroke scale score: 2 Course Orders Ordered: ED Orders 05/16/21 19:15 CT Stroke Stat 05/16/21 19:40 Complete Blood Count AUTO DIFF Stat Partial Thromboplastin Time Stat Prothrombin Time INR Stat 05/16/21 19:50 Basic Metabolic Panel Stat Troponin & CK Cardiac Panel Stat 05/16/21 19:59 CT angio head and neck Stat 05/16/21 20:06 COVID19 -Nasal RAPID/Pre-Proc Stat Sodium Chloride (Normal Saline 0.9%) 1,000 mls @ 125 mls/hr IV CONT JESSICA Last Admin: 05/16/21 22:15 Dose: 125 mls/hr Documented by: JAVI Ondansetron HCl (Ondansetron 4 Mg/2 Ml Inj) 4 mg IV Q4HR PRN PRN Reason: Nausea And Vomiting Discontinued Medications Aspirin (Aspirin 81 Mg Chew Tab) 243 mg PO NOW ONE Stop: 05/16/21 20:10 Last Admin: 05/16/21 20:22 Dose: 243 mg Documented by: RUFUS Consultations Consultation #1: Dr. Krishnamurthy, for Dr. Toth. Bridging orders requested. Admission for CVA with persistent expressive aphasia although mild. Vital Signs Vital signs: Vital Signs - 8 hr 05/16/21 20:02 05/16/21 20:07 05/16/21 20:26 Pulse Rate 71 71 70 Blood Pressure 165/74 H 153/72 H Pulse Oximetry 99 98 95 05/16/21 20:30 05/16/21 20:31 05/16/21 20:57 Pulse Rate 84 73 73 Blood Pressure 184/83 H 182/74 H Pulse Oximetry 97 97 96 05/16/21 21:00 05/16/21 21:01 05/16/21 21:30 Pulse Rate 66 65 64 Blood Pressure 154/67 H Pulse Oximetry 97 97 97 05/16/21 21:31 Pulse Rate 65 Blood Pressure 156/65 H Pulse Oximetry 96 MDM - Neuro Symptoms/Deficit Lab Data Result diagrams: 05/16/21 19:40 05/16/21 19:50 Labs: Lab Results 05/16/21 05/16/21 05/16/21 Range/Units 19:40 19:40 19:50 WBC 6.5 (4.5-11.0) X10^3/uL RBC 4.02 (4.0-5.2) X10^6/uL Hgb 12.3 (12.0-16.0) g/dL Hct 36.8 (36-46) % MCV 91.4 (80-100) fL MCH 30.6 (26-34) PG MCHC 33.5 (30-36) % RDW 13.3 (11.6-14.8) % Plt Count 233 (150-400) X10^3/uL Neut % (Auto) 55.1 (50-75) % Lymph % (Auto) 32.9 (25-40) % [place] % (Auto) 8.7 (3-14) % Eos % (Auto) 2.4 (2-4) % Baso % (Auto) 0.9 (0-2) % Neut # (Auto) 3600 (8332-0200) /uL Lymph # (Auto) 2200 (0770-2012) /uL [place] # (Auto) 600 (0-900) /uL Eos # (Auto) 200 (0-450) /uL Baso # (Auto) 100 (0-100) /uL PT 10.8 (10.1-12.7) SECONDS INR 1.0 (0.9-1.3) APTT 38 H (26.4-36.2) SECONDS Sodium 136 L (137-145) mmol/L Potassium 3.8 (3.4-5.1) mmol/L Chloride 101 (98-107) mmol/L Carbon Dioxide 29 (22-32) mmol/L BUN 15 (7-17) mg/dL Creatinine 0.74 (0.52-1.04) mg/dL Estimated GFR > 60.0 (>60) mL/min BUN/Creatinine Ratio 20.3 (6-22) Glucose 103 (80-110) mg/dL Calcium 9.3 (8.4-10.2) mg/dL Total Creatine Kinase 42 (30-135) U/L CK-MB (CK-2) TNP CK-MB (CK-2) Rel Index TNP Troponin I < 0.012 (0.01-0.034) ng/mL SARS-CoV-2 (PCR) (Negative) 05/16/21 Range/Units 20:06 WBC (4.5-11.0) X10^3/uL RBC (4.0-5.2) X10^6/uL Hgb (12.0-16.0) g/dL Hct (36-46) % MCV (80-100) fL MCH (26-34) PG MCHC (30-36) % RDW (11.6-14.8) % Plt Count (150-400) X10^3/uL Neut % (Auto) (50-75) % Lymph % (Auto) (25-40) % [place] % (Auto) (3-14) % Eos % (Auto) (2-4) % Baso % (Auto) (0-2) % Neut # (Auto) (9671-3724) /uL Lymph # (Auto) (1433-9784) /uL [place] # (Auto) (0-900) /uL Eos # (Auto) (0-450) /uL Baso # (Auto) (0-100) /uL PT (10.1-12.7) SECONDS INR (0.9-1.3) APTT (26.4-36.2) SECONDS Sodium (137-145) mmol/L Potassium (3.4-5.1) mmol/L Chloride (98-107) mmol/L Carbon Dioxide (22-32) mmol/L BUN (7-17) mg/dL Creatinine (0.52-1.04) mg/dL Estimated GFR (>60) mL/min BUN/Creatinine Ratio (6-22) Glucose (80-110) mg/dL Calcium (8.4-10.2) mg/dL Total Creatine Kinase (30-135) U/L CK-MB (CK-2) CK-MB (CK-2) Rel Index Troponin I (0.01-0.034) ng/mL SARS-CoV-2 (PCR) Negative (Negative) Point of Care Testing Glucose POC 94 Urine Dip Bedside Urine Glucose Negative Bedside Urine Bilirubin - Negative Bedside Urine Ketone - Negative Urine Specific [place] 1.01 Bedside Urine Occult Blood - Negative Bedside Urine pH 6.5 Bedside Urine Protein - Negative Bedside Urine Urobilinogen - Negative Bedside Urine Nitrite - Negative Bedside Urine Leukocytes - Negative Esterase Imaging Data CT scan - head: Radiologist's Impression: Launch?[address] [address] [address] Scan Report Signed Patient: Elsi Sim MR#: [id number] : 1945 Acct:[id number] Age/Sex: 76 / F Date of Service: 05/16/21 Loc: ED Accession Number: [id number] ?? Procedure: CT Stroke Ordering Provider: Magalis Hough D.O. PROCEDURE:? CT STROKE ? INDICATIONS:? r/o cva ? TECHNIQUE:? Noncontrast 5 mm thick angled axial sections acquired from the foramen magnum to the vertex, with coronal reformats.? For radiation dose reduction, the following was used:? automated exposure control, adjustment of mA and/or kV according to patient size.? ? COMPARISON:? None. ? FINDINGS:? Image quality:? Excellent.? ? CSF spaces:? Basal cisterns are patent.? No extra-axial fluid collections.? Ventricles are normal in size and shape.? ? Brain:? No midline shift.? No intracranial masses or hemorrhage.? Herron-white matter interface is normal.? Moderate atrophy and multifocal white matter chronic ischemic change.? Old left frontal cortical infarct noted. ? Skull and face:? Calvarium and visualized facial bones are intact, without suspicious lesions.? Left perianal craniotomy secured by round and straight plates.? Bilateral intraocular lens replacements noted. ? Sinuses:? Visualized sinuses and mastoids are clear.? ? IMPRESSION:? ? Atrophy and chronic ischemic change without acute hemorrhage or mass effect. ? Old left frontal small cortical infarct. ? This study fulfills neurological imaging criteria for inclusion or exclusion of acute stroke therapies based on available published neurological imaging guidelines.? ? ? Note:? Critical results were discussed with Dr. Hough at 7:00 PM [place] time on 05/16/21 ? Approved by: Chago Marin M.D. on 05/16/2021 at 19:02 CTA - brain/neck: Radiologist's Impression: [address] [address] [address] Scan Report Signed Patient: Elsi Sim MR#: [id number] : 1945 Acct:[id number] Age/Sex: 76 / F Date of Service: 05/16/21 Loc: ED Accession Number: [id number] ?? Procedure: CT angio head and neck Ordering Provider: Magalis Hough D.O. PROCEDURE:? CT ANGIO HEAD AND NECK ? INDICATIONS:? expressive aphasia persisting, vision loss this am. ? TECHNIQUE:? Pre-contrast 4.5 mm thick sections acquired from the foramen magnum to the vertex.? After the administration of intravenous contrast, 1 mm thick sections acquired from the aortic arch through the [place] of [place].? Post-contrast 4.5 mm thick sections then re- acquired from the foramen magnum to the vertex.? 3-dimensional evrunkw-lposxhtpk-ohccyoiwlo (MIP) and/or volume rendering reformats were acquired of the central intracranial vasculature and neck separately. For radiation dose reduction, the following was used:? automated exposure control, adjustment of mA and/or kV according to patient size.? ? COMPARISON:? [facility], CT, CT STROKE, 05/16/2021, 19:24.? [facility], CT, CT ANGIO HEAD AND NECK, 01/28/2020, 16:10. ? FINDINGS:? Image quality:? Excellent.? ? BRAIN:? CSF spaces:? Ventricles are normal in size and shape.? Basal cisterns are patent.? No extra-axial fluid collections.? ? Brain:? No midline shift.? No intracranial bleeds or masses.? Herron-white matter interface appears unchanged, in this patient with prior small areas of encephalomalacia involving the anterior left parietal lobe, present on prior head CT/angiogram 01/28/20.? No new area of encephalomalacia has developed and no area of acute or subacute ischemic injury appears present..? ? Skull and face:? Calvarium and facial bones appear intact, without suspicious lesions.? Orbits appear normal.? ? Sinuses:? Sinuses and mastoids are clear.? ? HEAD CT ANGIOGRAPHY:? Anterior circulation:? Stable over time with asymmetric Intracranial internal carotid arteries again documented in this patient with occlusion of the left internal carotid artery from its origin.? The flow within the paired anterior cerebral arteries is normal and symmetric.? The flow within the middle cerebral arteries is stable in appearance and again seen to be normal on the right and asymmetrically diminished at the left middle cerebral artery M1 segment.? The anterior communicating artery is seen.? No aneurysms are seen.? ? Posterior circulation:? Visualized portions of the vertebral arteries demonstrate left vertebral artery dominance.? caliber, and join to form a normal appearing basilar artery. ?Flow within the posterior cerebral arteries is normal and symmetric.? No aneurysms are seen.? ? NECK CT ANGIOGRAPHY:? Carotid system:? The great vessels demonstrate a conventional anatomy as they arise from the aortic arch.? The origins of the common carotid arteries appear patent.? The common carotid arteries demonstrate normal caliber and courses.? The bifurcation regions normal in morphology but show occlusion of the left internal carotid artery as was previously the case from its origin cephalad.? The internal carotid arteries demonstrate no new abnormality, with occlusion of the left internal carotid extending cephalad into the skull base as was previously the case..? ? Posterior circulation:? The origins of the vertebral arteries both appear widely patent.? The more superior extracranial portions of both vertebral arteries also demonstrate normal courses and calibers.? They join to form a normal appearing basilar artery.? ? Soft tissues:? Visualized neck soft tissues demonstrate no suspicious abnormalities.? ? Bones:? No suspicious bony lesions.? Visualized cervical spine appears normally aligned.? IMPRESSION:? No exchange floor manager time identified.? There are 2 small areas of encephalomalacia involving the subcortical white matter at the anterior left parietal lobe, previously also present in January of 2020.? There also is again noted to be occlusion of the left internal carotid artery from its origin cephalad, and asymmetric significantly diminished caliber at at the M1 segment left middle cerebral artery open (also previously present in January of 2020). ? Overall, therefore, source of new symptoms is not found.? Depending on the clinical status follow-up by elective MR scanning may be warranted. ? Any quantitative measurements of stenosis were performed using NASCET criteria.? ? ? Dictated by: Ehsan Sim M.D. on 05/16/2021 at 20:49 ? ? Approved by: Ehsan Sim M.D. on 05/16/2021 at 21:02?? ECG Data Attestation: I personally reviewed and interpreted this ECG as follows: Prior ECG tracings: not available for review Interpretation: Sinus rhythm rate of 70 5p are 178 QRS 86 QTC of 439. No acute ST elevation depression noted. No priors available. MDM Narrative Medical decision making narrative: This is a 76-year-old female with prior history of stroke, aneurysm with clipping who had loss of vision in her left eye for 1 minute this morning and then has had persistent expressive aphasia throughout the day which is mild but there in easily appreciated by myself as well. She has possibly some very mild dysarthria but not severe otherwise her NIH is negative. She is on aspirin 81 mg daily, medication for hypertension, dyslipidemia and diabetes. Patient initial head CT is negative she is far outside the window for tPA. She has some hyponatremia but not significant enough to likely cause her symptoms today. CT angio was obtained and showed no acute changes. Patient was given 3 additional aspirin for total of 324 mg today. Discussed with hospitalist service, Dr. Mensah for Dr. Toth for observation Stroke Core Measures Exclusion Criteria TPA in CVA: Symptom Onset >3 or 4.5 Hours Discharge Plan Departure Patient Disposition: Admitted As Inpatient Clinical Impression: Acute CVA (cerebrovascular accident) Admit Date/Time: 05/16/21 21:52 Admit Provider: Flip Krishnamurthy
--- NOTE | 2021-05-16 19:15 | DI.CT.S_ITS ---
PROCEDURE: CT STROKE INDICATIONS: r/o cva TECHNIQUE: Noncontrast 5 mm thick angled axial sections acquired from the foramen magnum to the vertex, with coronal reformats. For radiation dose reduction, the following was used: automated exposure control, adjustment of mA and/or kV according to patient size. COMPARISON: None. FINDINGS: Image quality: Excellent. CSF spaces: Basal cisterns are patent. No extra-axial fluid collections. Ventricles are normal in size and shape. Brain: No midline shift. No intracranial masses or hemorrhage. Herron-white matter interface is normal. Moderate atrophy and multifocal white matter chronic ischemic change. Old left frontal cortical infarct noted. Skull and face: Calvarium and visualized facial bones are intact, without suspicious lesions. Left perianal craniotomy secured by round and straight plates. Bilateral intraocular lens replacements noted. Sinuses: Visualized sinuses and mastoids are clear. IMPRESSION: Atrophy and chronic ischemic change without acute hemorrhage or mass effect. Old left frontal small cortical infarct. This study fulfills neurological imaging criteria for inclusion or exclusion of acute stroke therapies based on available published neurological imaging guidelines. Note: Critical results were discussed with Dr. Hough at 7:00 PM [place] time on 05/16/21 Approved by: Chago Marin M.D. on 05/16/2021 at 19:02
[2021-05-16 19:43] LABS: Basophils Percent Auto 0.9 % (0-2); Eosinophils Percent Auto 2.4 % (2-4); Hematocrit 36.8 % (36-46); Hemoglobin 12.3 g/dL (12.0-16.0); Lymphocytes Percent Auto 32.9 % (25-40); Mean Corpuscular HGB Conc 33.5 % (30-36); Mean Corpuscular Hemoglobin 30.6 PG (26-34); Mean Corpuscular Volume 91.4 fL (80-100); Monocytes Percent Auto 8.7 % (3-14); Neutrophils Percent Auto 55.1 % (50-75); Platelet Count 233 X10^3/uL (150-400); Red Blood Cell Count 4.02 X10^6/uL (4.0-5.2); Red Cell Distribution Width 13.3 % (11.6-14.8); White Blood Cell Count 6.5 X10^3/uL (4.5-11.0)
[2021-05-16 19:44] LABS: Add Manual Diff / Slide Review NO; Basophils Absolute Auto 100 /uL (0-100); Eosinophils Absolute Auto 200 /uL (0-450); Lymphocytes Absolute Auto 2200 /uL (1100-4500); Monocytes Absolute Auto 600 /uL (0-900); Neutrophils Absolute Auto 3600 /uL (1500-7000)
[2021-05-16 19:54] LABS: Prothrombin Time 10.8 SECONDS (10.1-12.7)
[2021-05-16 19:57] LABS: PTT Partial Thromboplastin Tim 38 SECONDS (26.4-36.2)
--- NOTE | 2021-05-16 19:59 | DI.CT.S_ITS ---
PROCEDURE: CT ANGIO HEAD AND NECK INDICATIONS: expressive aphasia persisting, vision loss this am. TECHNIQUE: Pre-contrast 4.5 mm thick sections acquired from the foramen magnum to the vertex. After the administration of intravenous contrast, 1 mm thick sections acquired from the aortic arch through the [place] of [place]. Post-contrast 4.5 mm thick sections then re-acquired from the foramen magnum to the vertex. 3-dimensional pzxgptm-yflirivgi-caxtknvivo (MIP) and/or volume rendering reformats were acquired of the central intracranial vasculature and neck separately. For radiation dose reduction, the following was used: automated exposure control, adjustment of mA and/or kV according to patient size. COMPARISON: [facility], CT, CT STROKE, 05/16/2021, 19:24. [facility], CT, CT ANGIO HEAD AND NECK, 01/28/2020, 16:10. FINDINGS: Image quality: Excellent. BRAIN: CSF spaces: Ventricles are normal in size and shape. Basal cisterns are patent. No extra-axial fluid collections. Brain: No midline shift. No intracranial bleeds or masses. Herron-white matter interface appears unchanged, in this patient with prior small areas of encephalomalacia involving the anterior left parietal lobe, present on prior head CT/angiogram 01/28/20. No new area of encephalomalacia has developed and no area of acute or subacute ischemic injury appears present.. Skull and face: Calvarium and facial bones appear intact, without suspicious lesions. Orbits appear normal. Sinuses: Sinuses and mastoids are clear. HEAD CT ANGIOGRAPHY: Anterior circulation: Stable over time with asymmetric Intracranial internal carotid arteries again documented in this patient with occlusion of the left internal carotid artery from its origin. The flow within the paired anterior cerebral arteries is normal and symmetric. The flow within the middle cerebral arteries is stable in appearance and again seen to be normal on the right and asymmetrically diminished at the left middle cerebral artery M1 segment. The anterior communicating artery is seen. No aneurysms are seen. Posterior circulation: Visualized portions of the vertebral arteries demonstrate left vertebral artery dominance. caliber, and join to form a normal appearing basilar artery. Flow within the posterior cerebral arteries is normal and symmetric. No aneurysms are seen. NECK CT ANGIOGRAPHY: Carotid system: The great vessels demonstrate a conventional anatomy as they arise from the aortic arch. The origins of the common carotid arteries appear patent. The common carotid arteries demonstrate normal caliber and courses. The bifurcation regions normal in morphology but show occlusion of the left internal carotid artery as was previously the case from its origin cephalad. The internal carotid arteries demonstrate no new abnormality, with occlusion of the left internal carotid extending cephalad into the skull base as was previously the case.. Posterior circulation: The origins of the vertebral arteries both appear widely patent. The more superior extracranial portions of both vertebral arteries also demonstrate normal courses and calibers. They join to form a normal appearing basilar artery. Soft tissues: Visualized neck soft tissues demonstrate no suspicious abnormalities. Bones: No suspicious bony lesions. Visualized cervical spine appears normally aligned. IMPRESSION: No mash filter cloth changer time identified. There are 2 small areas of encephalomalacia involving the subcortical white matter at the anterior left parietal lobe, previously also present in January of 2020. There also is again noted to be occlusion of the left internal carotid artery from its origin cephalad, and asymmetric significantly diminished caliber at at the M1 segment left middle cerebral artery open (also previously present in January of 2020). Overall, therefore, source of new symptoms is not found. Depending on the clinical status follow-up by elective MR scanning may be warranted. Any quantitative measurements of stenosis were performed using NASCET criteria. Dictated by: Ehsan Sim M.D. on 05/16/2021 at 20:49 Approved by: Ehsan Sim M.D. on 05/16/2021 at 21:02
[2021-05-16 20:12] LABS: BUN Creatinine Ratio 20.3 (6-22); Blood Urea Nitrogen 15 mg/dL (7-17); Calcium 9.3 mg/dL (8.4-10.2); Carbon Dioxide 29 mmol/L (22-32); Chloride 101 mmol/L (98-107); Creatine Kinase 42 U/L (30-135); Estimated Glomerular Filt Rate > 60.0 mL/min (>60); Glucose 103 mg/dL (80-110); HEMOLYSIS 20 (0-50); Potassium 3.8 mmol/L (3.4-5.1); Sodium 136 mmol/L (137-145)
[2021-05-16] MEDS: ASPIRIN 81 MG CHEW TAB 243 MG PO (20:22)
[2021-05-16 20:24] LABS: Troponin I < 0.012 ng/mL (0.01-0.034)
[2021-05-16 20:32] LABS: COVID19 -Nasal RAPID Negative (Negative)
[2021-05-16] MEDS: SODIUM CHLORIDE 0.9% 1,000 ML 125 ML IV (22:15)
[2021-05-17] VITALS (7 sets, daily range): BP systolic 135–150; BP diastolic 57–64; PULSE 64–67; RESP 12–20; TEMP 36.1–36.9; O2SAT 94–98
[2021-05-17] MEDS: SODIUM CHLORIDE 0.9% 1,000 ML 125 ML IV (07:04)
--- NOTE | 2021-05-17 07:24 | PC.NURSE ---
Admit/NOC Shift Note- Patient arrived to room via stretcher from ER at 2235. Patient alert and oriented with some word finding issues. Patient able to make needs known to staff. Admit questions done, physical assessment done, and skin check completed. Patient oriented to bed and bed controls, room, lights, phone, bathroom, menu, phone, and call garcia/tv remote. Patient agrees to call for assistance. bed alarm activated. call garcia and phone [email or web address] reach. will continue to monitor.
--- NOTE | 2021-05-17 12:31 | DI.MRI.S_ITS ---
PROCEDURE: MR HEAD/BRAIN WO/W CON INDICATIONS: CVA/aphasia TECHNIQUE: Noncontrast axial T1 spin echo, axial T2 fast spin echo, sagittal and axial FLAIR, coronal T2 fast spin echo, axial gradient echo, axial diffusion and ADC through the brain. After the administration of contrast, axial and coronal T1 spin echo with fat saturation through the brain. COMPARISON: [facility], CT, CT ANGIO HEAD AND NECK, 01/28/2020, 16:10. [facility], CT, CT ANGIO HEAD AND NECK, 05/16/2021, 20:17. [facility], CT, CT STROKE, 05/16/2021, 19:24. [facility], MR, BRAIN W&WO CONTRAST, 12/19/2015, 14:59. FINDINGS: Image quality: Excellent. CSF spaces: Basal cisterns are patent. No extra-axial fluid collections. Stable asymmetry can be seen of the ventricles, with a left lateral ventricle slightly larger than the right. Brain: Several tiny foci of diffusion-weighted abnormality can be seen within the left cerebral hemisphere, as on series 11, images 63 and 64. Associated dark signal can be seen on the ADC No midline shift. No intracranial bleeds or masses. No abnormal intracranial enhancement. There is cerebral volume loss for age. There is periventricular white matter chronic small vessel ischemic change. The brainstem appears normal. Remote left-sided infarction can be seen. Skull and face: Left-sided craniotomy change can be seen. 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 Poor flow voids are seen within this region. Calvarial marrow is normal in signal. Orbits appear normal. Note is made of bilateral lens replacements. Sinuses: Sinuses and mastoids appear clear. IMPRESSION: Tiny foci of left cerebral hemisphere acute/subacute infarction can be seen. Left-sided craniotomy changes are seen. Left internal carotid artery vascular abnormalities, which are better seen on the recent prior CT angiogram, 05/16/2021. Areas of remote left cerebral hemisphere infarction are again seen. Dictated by: Rolando Brito M.D. on 05/17/2021 at 15:52 Approved by: Rolando Brito M.D. on 05/17/2021 at 16:01
--- NOTE | 2021-05-17 13:09 | PM.HP.1 ---
History of Present Illness History of Present Illness Date Patient Seen: 05/17/21 Time Patient Seen: 09:15 Chief complaint: poss. stroke Narrative: Pt with past hx of CVA and carotid aneurysm clipping x2 presented to ED yesterday evening with complaint of transient vision loss in L eye and persistent expressive aphasia that morning. She otherwise feels fine her vision is back to regular and she is very frustrated with her expressive difficulties. Histroy of mild diabetes hyperlipidemia hypertension and neuropathy for which she takes gabapentin and celebrex. Lives in town generally independent. Desires to be full code, daughter Scott at bedside. Hx of allergy to cheap metals this was an issue with aneurysm clipping. Did just get new glasses 2 days ago which are very tight in the temples. Patient History Medical History Aneurysm Asthma Cataract (2011) Cervical cancer (1975) Chronic back pain (2009) Chronic headaches Colon polyps (2012) CTS (carpal tunnel syndrome) (2014) Drug resistance Herniated nucleus pulposus, L2-3 left Hypertension (1974) Migraines Spondylolisthesis at L4-L5 level Stroke (2014) T11 vertebral fracture T12 burst fracture Vertigo (2014) Surgical History Anesthesia complication History of cataract removal with insertion of prosthetic lens (2008) Status post delivery (07/09/75) Status post cholecystectomy (1991) Status post hysterectomy (1976) Family & Social History Family History Brother Diabetes mellitus Heart disease Essential hypertension High cholesterol Lung cancer Father Heart disease Essential hypertension Mother Diabetes mellitus Cerebrovascular accident (CVA), unspecified mechanism Heart attack Sister Diabetes mellitus Heart disease Essential hypertension High cholesterol Kidney failure Grandfather No problems noted. Grandmother No problems noted. Grandfather No problems noted. Grandmother No problems noted. Social History: household members none Prior Living Arrangements Group Home Facility other computer games,play with grandkids,cooking Safety & Behavioral: Feels Safe in Current Yes Environment Been Physically Hurt or No Threatened By a Person Suicidal Ideation Description None Suicide Plan Description No Plan Tobacco & Substance use: Tobacco type cigarettes Smoking Status Former smoker alcohol intake former alcohol intake frequency 0-2 drinks per day Substance Use Type does not use Meds Home Medications and Allergies Home Medications Medication Instructions Recorded Confirmed Type aspirin 81 mg tablet,delayed 81 mg PO QDAY #0 11/10/15 05/16/21 History release cyanocobalamin (vitamin B-12) 5,000 mcg PO DAILY 11/07/19 05/16/21 History 5,000 mcg capsule albuterol sulfate 90 mcg/actuation 2 puff INHALATION Q4-6H PRN #8.5 08/06/20 05/16/21 Rx aerosol inhaler (ProAir HFA) gram acetaminophen 500 mg capsule 500 mg PO Q6H 09/01/20 05/16/21 History atorvastatin 40 mg tablet See Rx Instructions .ROUTE 01/19/21 05/16/21 Rx .COMPLEX #90 tab lisinopril 10 mg tablet 30 mg PO DAILY #90 tab 01/19/21 05/16/21 Rx nystatin 100,000 unit/gram topical 1 applic TOPICAL BID #30 g 01/29/21 05/16/21 Rx cream gabapentin 300 mg capsule 300 mg PO .COMPLEX #90 cap 04/06/21 05/16/21 Rx celecoxib 200 mg capsule (Celebrex) 200 mg PO DAILY #30 cap 04/13/21 05/16/21 Rx metformin 500 mg tablet,extended 500 mg PO BID 05/16/21 05/16/21 History release 24 hr Allergies Allergy/AdvReac Type Severity Reaction Status Date / Time clopidogrel [From PLAVIX] Allergy Mild thickened Verified 05/16/21 19:28 blood morphine [MORPHINE] Allergy Unknown ITCHING Verified 05/16/21 19:28 oxycodone [From PERCOCET] AdvReac Unknown HIGH BLOOD Verified 05/16/21 19:28 PRESSURE Review of Systems Review of Systems Narrative: all systems reviewed and negative except as otherwise documented in HPI Exam Vital Signs (past 8 hours): - 05/17/21 07:00 05/17/21 11:00 Temperature 98.0 F 98.4 F Pulse Rate 65 65 Respiratory Rate 20 20 Blood Pressure 150/62 H 135/64 Pulse Oximetry 96 97 Oxygen Delivery Method Room Air Oxygen Flow Rate 0 Narrative Exam Narrative: sitting in bed attempting to have conversation with her daughter Const General: cooperative, healthy appearing and comfortable [facility] Head: normal to inspection, normocephalic and atraumatic Eyes General: appearance normal, both eyes and all related structures Visual Marshall: normal visual marshall by confrontation EOM: EOM intact bilaterally Neck Neck: normal visual inspection, full ROM, trachea midline and supple Resp Auscultation: clear to auscultation bilaterally Cardio Rate: regular rate Rhythm: regular rhythm Heart Sounds: S1 normal and S2 normal GI Other: soft nontender normal bowel sounds Skin General: no rashes or lesions noted Neuro Other: Intermittent expressive aphasia. Short reflexive/social sentences are generally clear with intact meaning however she has severe deliberate anomia and frequent transposition of critical words for example she states I am a Libertarian - per daughter this is definitely not in line with her previous vocally expressed political views. Visual marshall are normal to direct confrontation bilaterally. CN 2-12 appear grossly intact without focal weakness. Swallow appears intact. Moving all extremities fluidly, strength 5/5 coordination good gait, steady. NIHSS 4 points - normal except for expressive difficulties. Psych Appearance: grossly normal and well kempt Mental Status: mental status grossly normal Other: frustrated with expressive difficulties Objective Labs Result Diagrams: 05/16/21 19:40 05/16/21 19:50 Labs: Laboratory Results - last 24 hr 05/16/21 05/16/21 05/16/21 19:40 19:40 19:50 WBC 6.5 RBC 4.02 Hgb 12.3 Hct 36.8 MCV 91.4 MCH 30.6 MCHC 33.5 RDW 13.3 Plt Count 233 Neut % (Auto) 55.1 Lymph % (Auto) 32.9 Warren % (Auto) 8.7 Eos % (Auto) 2.4 Baso % (Auto) 0.9 Neut # (Auto) 3600 Lymph # (Auto) 2200 Warren # (Auto) 600 Eos # (Auto) 200 Baso # (Auto) 100 PT 10.8 INR 1.0 APTT 38 H Sodium 136 L Potassium 3.8 Chloride 101 Carbon Dioxide 29 BUN 15 Creatinine 0.74 Estimated GFR > 60.0 BUN/Creatinine Ratio 20.3 Glucose 103 Calcium 9.3 Total Creatine Kinase 42 CK-MB (CK-2) TNP CK-MB (CK-2) Rel Index TNP Troponin I < 0.012 SARS-CoV-2 (PCR) 05/16/21 20:06 WBC RBC Hgb Hct MCV MCH MCHC RDW Plt Count Neut % (Auto) Lymph % (Auto) Warren % (Auto) Eos % (Auto) Baso % (Auto) Neut # (Auto) Lymph # (Auto) Warren # (Auto) Eos # (Auto) Baso # (Auto) PT INR APTT Sodium Potassium Chloride Carbon Dioxide BUN Creatinine Estimated GFR BUN/Creatinine Ratio Glucose Calcium Total Creatine Kinase CK-MB (CK-2) CK-MB (CK-2) Rel Index Troponin I SARS-CoV-2 (PCR) Negative Assessment & Plan Assessment & Plan narrative: #Expressive aphasia #suspected CVA #hx of CVA #hx of L carotid aneurysm s/p clipping x2 Initial CTA was clear no bleed outside window for intervention at this time. vision disturbance appear grossly resolved but expressive aphasia is persistent. Per report her aneurysm clips are MRI-safe will get MRI brain without contrast for half-time and check echo. PT/OT/ST eval. Swallowing appears grossly ok continue heart healthy diet. Continue statin/ASA 81. Encouraged to explore variety of communicative modalities look for intact pathways. Difficulty singing words to amazing ervin but can carry the tune. Handwriting intact can write her name. #non insulin dependent diabetes mellitus continue home metformin with SSI #hypertension stable continue home lisinopril #neuropathy stable continue home meds Code: full PCP: Navne[facility] MDM: Daughter Scott [phone] Diet: heart healthy DVT: Lovenox Time Spent With Patient Critical Care time: I spent a total of [] minutes of critical care time on this patient's care today; this time is exclusive of procedural time. Quality VTE Deep Vein Thrombosis/Pulmonary Embolism Present on Admission: No
--- NOTE | 2021-05-17 13:32 | DI.ECHO.S_ITS ---
[facility]---------+ [facility] +---------+ : : [address] : : : : [id number] : : : : Phone: [phone] Echocardiogram Report + + :Name: MAMTA RICE Study Date: 05/18/2021 Height: 60 in : :[facility] ReadingLocation: Weight: 158 lb : : Gender: Female BSA: 1.7 m2 : :: 1945 Age: 76 yrs BP: 144/57 mmHg: :Reason For Study: CVA WORKUP : :Ordering Physician: AMAURY, : :KALYN Helton Performed By: Cathy Putnam : :Referring: KALYN REBOLLEDO : + + Interpretation Summary The patient was in sinus rhythm with heart rates between 65-76 bpm during the exam. The left ventricle is normal in size and wall thickness. The ejection fraction is estimated to be 50-55%. There is no LV thrombus. The right ventricle is normal in size and function. There is mild tricuspid regurgitation. The right ventricular systolic pressure is estimated to be at least 19 mmHg based on an estimated right atrial pressure of 3 mm Hg. There is aortic root sclerosis/calcification. Mild atherosclerotic plaque(s) in the aortic arch. There is mild luminal irregularity and echogenicity in the abdominal aorta, suggestive of aortic atherosclerotic disease. Procedure: A two-dimensional transthoracic echocardiogram with color flow and Doppler was performed. The study quality was technically adequate. A contrast injection of Definity was performed to improve assessment of LV function. There is no prior echocardiogram noted for this patient. The patient was in sinus rhythm with heart rates between 65-76 bpm during the exam. Left Ventricle: The left ventricle is normal in size and wall thickness. There is no thrombus. The ejection fraction is estimated to be 50-55%. There are no focal wall motion abnormalities. MV E/A: 0.57 Med Peak E' Javon: 3.0 cm/sec E/E' med: 25.5. Right Ventricle: The right ventricle is normal in size and function. Atria: The left atrial size is normal. Right atrial size is normal. A prominent eustachian valve is noted. There is no Doppler evidence for an interatrial shunt. Mitral Valve: There is mild mitral annular calcification. The mitral valve leaflets are slightly calcified. There is mild mitral regurgitation. Aortic Valve: The aortic valve is trileaflet. The aortic valve opens well. The aortic valve is mildly calcified. There is no aortic valve stenosis. There is trace aortic regurgitation. Tricuspid Valve: The tricuspid valve is normal in structure and function. There is mild tricuspid regurgitation. The right ventricular systolic pressure is estimated to be at least 19 mmHg based on an estimated right atrial pressure of 3 mm Hg. Pulmonic Valve: The pulmonic valve is not well visualized. There is no pulmonic valvular regurgitation. Great Vessels: The aortic root is normal size. There is aortic root sclerosis/calcification. The ascending aorta is normal in size. Mild atherosclerotic plaque(s) in the aortic arch. There is mild luminal irregularity and echogenicity in the abdominal aorta, suggestive of aortic atherosclerotic disease. The IVC is of normal diameter and collapses greater than 50% with a sniff. This suggests a low right atrial pressure of 3 mm Hg. Pericardium/ Pleura There is no pericardial effusion. There is no pleural effusion. MMode/2D Measurements & Calculations LVIDd: 4.6 cm LVOT diam: 2.0 cm LVIDs: 3.2 cm Ao root diam: 3.7 cm FS: 31.2 % asc Aorta Diam: 3.5 cm IVSd: 0.79 cm Ao Arch Diam (Prox Trans): 2.3 cm LVPWd: 0.98 cm LV sol. diameter/BSA (cm/m^2): 2.7 LV sys. diameter/BSA (cm/m^2): 1.9 LA A2 area: 17.2 cm2 RA long axis: 4.9 cm LA A4 area: 14.1 cm2 RA area: 14.4 cm2 LA length (vol): 5.2 cm RA vol: 35.8 ml LA vol: 40.0 ml RA : 21.2 ml/m2 LA vol index: 23.7 ml/m2 IVC diam: 1.8 cm RVD1 (basal): 3.0 cm TAPSE: 1.9 cm Doppler Measurements & Calculations Ao V2 max: 98.2 cm/sec MV E max javon: 76.6 cm/sec Ao V2 mean: 75.6 cm/sec MV A max javon: 133.8 cm/sec Ao max P.9 mmHg MV E/A: 0.57 Ao mean P.4 mmHg Med Peak E' Javon: 3.0 cm/sec Ao V2 VTI: 20.7 cm E/E' med: 25.5 Lat Peak E' Javon: 3.9 cm/sec E/E' lat: 19.9 E/e' average: 22.7 MV dec time: 0.28 sec TR max javon: 199.5 cm/sec TR max P.9 mmHg PA V2 max: 72.5 cm/sec PA V2 mean: 49.2 cm/sec PA mean P.1 mmHg Reading Physician:01:39 PM
--- NOTE | 2021-05-17 13:33 | PT.IIE ---
Surgical History (Last Reviewed 05/17/21 @ 13:31 by Flip Krishnamurthy MD) Anesthesia complication History of cataract removal with insertion of prosthetic lens (2008) Status post delivery (07/09/75) Status post cholecystectomy (1991) Status post hysterectomy (1976) Medical History (Last Reviewed 05/17/21 @ 13:31 by Flip Krishnamurthy MD) Aneurysm Asthma Cataract (2011) Cervical cancer (1975) Chronic back pain (2009) Chronic headaches Colon polyps (2012) CTS (carpal tunnel syndrome) (2014) Drug resistance Herniated nucleus pulposus, L2-3 left Hypertension (1974) Migraines Spondylolisthesis at L4-L5 level Stroke (2014) T11 vertebral fracture T12 burst fracture Vertigo (2014) Physical Therapy Inpatient Evaluation/Re-Eval M1 PT/OT-IP Prior Functional Status Start: 05/17/21 11:57 Freq: NEEDED Status: Active Protocol: Document 05/17/21 13:33 AW (Rec: 05/17/21 14:31 AW [id number]) Medical Review Prior Functional Status Medical History Reviewed Yes Communication Pt is able to make her needs known Mobility and Gait Pt states she is modified indpendent using 4WW. She has a history of recurrent falls Activities of Daily Living and IADL's Pt states she manages her own ADL's. She has caregiver assist for five hours twice weekly. Her caregiver helps with laundry, cooking, cleaning. Prior Functional Level (Other details) Pt has history of left frontal lobe CVA and left brain aneurysm. Social History Household Members none Living Arrangements [facility] Facility Number of Stairs To Enter/Railing? Pt lives in first floor apartment with no stairs. Home Environment Standard Height Toilet,Tub/ Shower Home Equipment Four Wheel Walker,Shower Seat with Backrest,Grab Bars In Shower Employment Status Retired Additional Social History Comment Pt is a retired caregiver. She lives [facility] at [facility] in [place]. She has supportive children. At least one of them lives in [place]. Pt gave permission for PT to contact her daughter but unable to connect by phone. M2 PT-IP Current Condition Start: 05/17/21 11:57 Freq: NEEDED Status: Active Protocol: Document 05/17/21 13:33 AW (Rec: 05/17/21 14:31 AW [id number]) Physical Therapy Current Condition Current Condition Evaluation Date 05/17/21 Treatment Diagnosis CVA; falls; decreased balance; difficulty in walking Onset Date 05/16/21 M3 PT-IP Subjective Start: 05/17/21 11:57 Freq: NEEDED Status: Active Protocol: Document 05/17/21 13:33 AW (Rec: 05/17/21 14:31 AW [id number]) Subjective Physical Therapy Visit Type Type Initial Evaluation Visit Start Time 13:02 Visit Stop Time 13:33 Total Visit Minutes [address] and CTA were stable compared with 2019. MRI to be completed later today. Physical Therapy Visit Comments Patient Comments Pt is frustrated with her communication difficulty but willing to participate with PT . Therapy Pain Assessment Pain When Pain Assessed During Mobility Pain Present Pain Present Denied Pain M4 PT-IP Mobility and Gait Start: 05/17/21 11:57 Freq: NEEDED Status: Active Protocol: Document 05/17/21 13:33 AW (Rec: 05/17/21 14:31 AW [id number]) PT-Bed Mobility Assessment Supine to Sit Supine to Sit Standby Assistance Sit to Supine Sit to Supine Standby Assistance PT-Transfer Assessment Sit to and From Stand Sit to and from Stand Standby Assistance,Use of Upper Extremities Equipment Transfer Assistive Device Gait Belt,Front Wheeled Walker Orthotic/Prosthetic Devices or Brace: No Transfers Transfer Destination Bed,Chair Transfer Technique Stand Step Pivot Transfer Ability Level of Assist Standby Assistance,Use of Upper Extremities Comments Mobility Comments Pt was lying in bed as PT arrived. She completed supine to sit SBA and stood EOB SBA. She transferred to the chair SBA and then stood again. She walked 60 feet without AD CGA. She walked another 200 feet with FWW SBA. On return to the room, she returned to supine SBA. VS were WNL and stable. Gait Assessment Gait Gait Assistance Required: Standby Assistance,Contact Guard Assist Distance (Feet) 200 Assistive Devices Assistive Device None,Gait Belt,Front Wheeled Walker Orthotic/Prosthetic Devices or Brace: No Gait Deviations General Gait Pattern Decreased Stride Length, Decreased Feet Clearance Factors Limiting Gait Function Factors Limiting Gait Function Decreased Strength,Poor Balance Comments Gait Comments Pt ambulated safely with FWW SBA and was able to navigate around the unit with min cues. Stair Climbing Assessment Comments Stair Climbing Comments Not assessed. PT-Balance Assessment Sitting Balance and Reactions Static Sitting Balance Ability Good Dynamic Sitting Balance Ability Good Standing Balance and Reactions Static Standing Balance Ability Good Dynamic Standing Balance Ability Good Device Used FWW M5 PT-IP Objective Assessments Start: 05/17/21 11:57 Freq: NEEDED Status: Active Protocol: Document 05/17/21 13:33 AW (Rec: 05/17/21 14:31 AW [id number]) Orientation Orientation/Cognition Level of Alertness Alert Orientation Name,Day of Week,Place, Situation Language Function Ability Expressive Aphasia,Word Finding Difficulties Safety Awareness Understands Safety Issues Memory Description Short Term Impaired Comments Pt struggled with word-finding throughout evaluation. Gross Range of Motion Lower Extremity ROM Assessment Within Functional Limits Strength Lower Extremity Strength Assessment Within Functional Limits Comments Strength Comments No unilateral deficit identified. Coordination Assessment Gross Coordination Gross Coordination Impaired Assessment Pronation/Supination Test Minimal Impairment Sensation Assessment Sensation Gross Sensation WNL Muscle Tone Muscle Tone WNL Yes M6 PT-IP Treatment Start: 05/17/21 11:57 Freq: NEEDED Status: Active Protocol: Document 05/17/21 13:33 AW (Rec: 05/17/21 14:31 AW [id number]) Physical Therapy Treatment Education Education Provided Safety M7 PT-IP Assessment and Plan Start: 05/17/21 11:57 Freq: NEEDED Status: Active Protocol: Document 05/17/21 13:33 AW (Rec: 05/17/21 14:31 AW [id number]) PT Summary Assessment and Plan Potential Rehabilitation Potential Good Status of Condition at Evaluation Evolving Summary Impairments Balance,Coordination,Transfers ,Gait Assessment Summary Elsi is a 76 yo woman with history of L frontal lobe CVA , left brain aneurysm s/p clip , migraines, and positional vertigo. She is admitted now with new onset expressive aphasia after a fall. She had difficulty communicating during this assessment. Attempts to reach her daughter for more complete description of PLOF were unsuccessful. It is known that she has a private caregiver 5 hours each on Tuesdays and . On assessment, pt required CGA for mobility without assistive device and SBA for mobility with FWW. Her deficits appear to be primarily related to communication but PT will follow up at least once out of concern for possibly evolving infarct. Will continue to assess for safe discharge plan once PLOF and home resources are more fully understood. At the least, pt would benefit from home health physical therapy to address environmental factors that may be contributing to falls risk . Goals Bed Mobility Goal Independent Transfer Goal Independent,Four Wheeled Walker Gait Goal Independent,Four Wheel Walker Gait Distance 200 Days to Meet Goals 5 Frequency of Treatment Frequency Of Treatment Once a Day Treatment Plan Physical Therapy Treatment Plan Bed Mobility Training,Transfer Training,Gait Training, Therapeutic Exercise,Balance Retraining,Discharge Planning, Hot or Cold Pack,Neuromuscular Re-ed,Coordination Retraining Other Recommendations and Next Treatment Assess gait with 4WW Focus Precautions Other Precautions falls Recommendations To Nursing Amount of Assist Needed Standby Assistance,1 Person Assist Discharge Recommendations PT Discharge Recommendations Home with Assistance,Home with 24/7 Assist Available,Home Health Transportation Needs at Discharge Private Vehicle
[2021-05-17] MEDS: ASPIRIN EC 81 MG TABLET PO (14:44)
--- NOTE | 2021-05-17 16:33 | CM.DANOTE ---
DCP/Assessment: Reviewed chart. Patient is a 76yr old female [facility] with [facility] like symptoms. PCP is Dr. Toth. Primary payor is 1)Medicare 2)Medicaid. Met with patient's daughter/Angelo Orellana at bedside explained role. Patient currently off floor for MRI. Daughter reports that patient resides alone in [facility] in [place]. Daughter indicates that she gets assistance from the state with caregivers 2x per week. Patient has had previous stroke. At this time daughter believes that patient has little if any physical deficit. Therapy evaluations will be helpful to determine next steps. Daughter in agreement to home with HH if recommended. Daughter also reports that family can stay with patient upon d/c from [facility] if needed. P:Pending. Anticipate home with HH vs. home with outpatient follow up? Awaiting therapy evaluations. As of now daughter does not acknowledge any large deficits. CASANDRA Samuels Discharge Planning/Care Management CM Discharge Assessment Start: 05/17/21 16:26 Freq: Status: Active Protocol: Document 05/17/21 16:26 KJS (Rec: 05/17/21 16:33 KJS [id number]) Discharge Planning Assessment Assigned Director Of Casework CASANDRA Samuels Contact Information Angelo Padilla (daughter) ph # [phone] Advance Directives? No History Provided By Family Member,Medical Record Prior Living Arrangements Apartment/Condo Household Members none Type of transporation used prior to Relies on Others admit Facility Name Admitted From: [facility] Willing to Return to Facility? Yes Independent with ADL's Yes: Patient has both walker and cane for home use. Is patient alert and oriented? Yes: Daughter reports alert and oriented. Needs Assistance With Bathing,Meal Prep,Home Chores / Shopping Comment Daughter reports that patient has caregivers that come 2x per week to assist with tasks in the residence. Caregiver for Another No DME Already Rented / Owned Wheelchair,FWW / Walker Comment Uses w/c for long distances, uses walker prn. Patient/Family Preference Home with Home Health Barriers to Discharge No Discharge Plan Home with Home Health Transportation Arrangement Family to provide transport. Referrals Initiated Other Additional Comment Anticipate that patient will benefit from either HH for therapy or outpatient. Patient currently undergoing MRI. Patient would benefit from therapy evalutaions once stroke w/u complete. Whiteboard Updated in Patient Room with Yes name and ext. # of Director Of Casework Review Status In Process Next Review Type Continued Stay Review
[2021-05-17] MEDS: ACETAMINOPHEN 325 MG TABLET 650 MG PO (16:56)
--- NOTE | 2021-05-17 19:54 | PC.NURSE ---
Patient is alert but only able to state her first name. With further questioning makes attempts to find words and then states I don't know what to say and becomes anxious. Breath sounds CTA with RA sat of 98%. HRR w/telemetry reading of SR. BP trends high and currently at 142/57. Denied nausea. BT present and abdomen is soft. Denies dysuria. Is able to move herself in bed and reportedly gets up with SBA. Dislikes SCD's so they are not on; patient reminded to ankle wave when awake. Denies pain. Fall risk score is high and bed alarm is activated.
[2021-05-17] MEDS: ATORVASTATIN 20 MG TABLET 80 MG PO (20:53)
[2021-05-17] MEDS: GABAPENTIN 300 MG CAPSULE 600 MG PO (20:53)
[2021-05-17] MEDS: METFORMIN XR 500 MG TABLET PO (20:53)
[2021-05-17] MEDS: SODIUM CHLORIDE 0.9% FLUSH 10 ML IV (20:53)
[2021-05-18] VITALS (7 sets, daily range): BP systolic 140–157; BP diastolic 57–70; PULSE 65–70; RESP 14–18; TEMP 36.1–36.7; O2SAT 94–97
--- NOTE | 2021-05-18 07:57 | P.PN_ITS ---
Subjective Subjective Date Patient Seen: 05/18/21 Time Patient Seen: 07:58 Interval history: Patient seen and evaluated this morning. Patient states she is doing much better today. Had a hard time yesterday with difficulty finding words. She says she is much better. Still at times has a hard time with word finding but communicating much more clearly. Initial presentation of vision loss transient in left eye x2. And then aphasia. MRI is consistent with cerebrovascular accident. Patient history of aneurysm. She says she does not walk much at home is able capable. Patient's has good distal strength she says today can lift arms and hands. She is communicating effectively know she is at [facility]. Reviewed telemetry strips over the weekend of with the nursing staff. No signs of atrial fibrillation. Tolerating diet. Swallowing without difficulty. Bowel movements okay blood pressure is okay. Exam Vital Signs (past 8 hours): - 05/18/21 02:40 05/18/21 06:00 Temperature 97.7 F 98.0 F Pulse Rate 69 70 Respiratory Rate 14 18 Blood Pressure 140/65 152/70 H Pulse Oximetry 95 97 Oxygen Delivery Method Room Air Oxygen Flow Rate 0 Narrative Exam Narrative: Gen.: Alert and oriented x3 no apparent distress having some difficulty with word finding. HEENT: NCAT PERRLA tympanic membranes are clear nares are patent oral mucosa is moist no tonsillar hypertrophy neck is supple without lymphadenopathy no thyroid enlargement. Cardio: S1-S2 regular rate and rhythm occasional missed beats no murmurs ap preciated. Respiratory: Lungs are clear to auscultation no wheezes or crackles normal respiratory effort. Abdomen: Soft nontender no rebound or guarding no liver spleen enlargement no appreciable hernias Extremities: Full range of motion no appreciable weakness no cyanosis or edema. Neurologic: Difficulty with word finding. Good strength and tone. Objective Labs Result Diagrams: 05/16/21 19:40 05/16/21 19:50 REPLACED BY [facility] Medical History Aneurysm Asthma Cataract (2011) Cervical cancer (1975) Chronic back pain (2009) Chronic headaches Colon polyps (2012) CTS (carpal tunnel syndrome) (2014) Drug resistance Herniated nucleus pulposus, L2-3 left Hypertension (1974) Migraines Spondylolisthesis at L4-L5 level Stroke (2014) T11 vertebral fracture T12 burst fracture Vertigo (2014) Surgical History Anesthesia complication History of cataract removal with insertion of prosthetic lens (2008) Status post delivery (07/09/75) Status post cholecystectomy (1991) Status post hysterectomy (1976) Family History Brother Diabetes mellitus Heart disease Essential hypertension High cholesterol Lung cancer Father Heart disease Essential hypertension Mother Diabetes mellitus Cerebrovascular accident (CVA), unspecified mechanism Heart attack Sister Diabetes mellitus Heart disease Essential hypertension High cholesterol Kidney failure Grandfather No problems noted. Grandmother No problems noted. Grandfather No problems noted. Grandmother No problems noted. Social History marital status: household members: none pets and animals: No education level: high school [employer]/ev[employer]ical: [employer] other: computer games,play with [email or web address],cooking seatbelt use: always water heater temp set < 120 deg: Yes working smoke detector in home: Yes fire extinguisher in home: No carbon monox detector in home: No firearms in home: Yes Smoking Status: Former smoker alcohol intake: former during the past year weight has: remained stable well-balanced diet: about half the time daily servings fruits/ve-4 caffeine: Yes eating out: 4 or more times/week Type(s) of exercise: walking frequency: 3-4 times per week duration: 60-90 minutes/day Assessment & Plan Assessment and plan (1) Acute CVA (cerebrovascular accident): Status: Acute Plan Left cerebral hemisphere acute stroke. Without significant bleed. Patient had transient vision loss and some aphasia. Vision loss is improved as well as aphasia. Continue with risk factor modification. Continue with statin blood pressure control. Change patient from baby aspirin to full strength aspirin. To work with PT OT today. Blood pressure management. Continue workup for secondary causes with echocardiogram and telemetry monitoring. If patient does well anticipate discharge home to house was killed nursing tomorrow. Patient history of carotid artery aneurysm. No signs of acute reoccurrence on CTA. No plaquing do not think this is the source of injury at this point based on imaging study. Continue to monitor. I outpatient follow-up with the neurologist. Essential hypertension. Patient's blood pressure stable continue current blood pressure management Hyperlipidemia. Continue on high intensity dose statin therapy. Type 2 diabetes without use of insulin. Continue was insulin sliding scale and metformin. Disposition and plan. Speec therapy OT therapy today. Echocardiogram to rule o ut underlying secondary causes and telemetry monitoring. Anticipate discharge tomorrow. Time Spent With Patient Critical Care time: I spent a total of [] minutes of critical care time on this patient's care today; this time is exclusive of procedural time. Quality VTE Deep Vein Thrombosis/Pulmonary Embolism Present on Admission: No
[2021-05-18] MEDS: lisinopriL 10 MG TABLET 30 MG PO (08:58)
[2021-05-18] MEDS: GABAPENTIN 300 MG CAPSULE 600 MG PO ×2 (08:58→20:55)
[2021-05-18] MEDS: ENOXAPARIN 40 MG/0.4 ML SYRINGE SUBCUT (08:58)
[2021-05-18] MEDS: METFORMIN XR 500 MG TABLET PO ×2 (08:58→20:56)
[2021-05-18] MEDS: CELECOXIB 200 MG CAPSULE PO (08:58)
[2021-05-18] MEDS: ASPIRIN EC 325 MG TABLET PO (08:58)
[2021-05-18] MEDS: SODIUM CHLORIDE 0.9% FLUSH 10 ML IV ×2 (08:59→20:56)
--- NOTE | 2021-05-18 09:07 | OT.IP.EVAL ---
Current Diagnoses Cerebral infarction, unspecified (05/16/21) Past Medical History (Last Reviewed 05/17/21 @ 13:31 by Flip Krishnamurthy MD) Aneurysm Asthma Cataract (2011) Cervical cancer (1975) Chronic back pain (2009) Chronic headaches Colon polyps (2012) CTS (carpal tunnel syndrome) (2014) Drug resistance Herniated nucleus pulposus, L2-3 left Hypertension (1974) Migraines Spondylolisthesis at L4-L5 level Stroke (2014) T11 vertebral fracture T12 burst fracture Vertigo (2014) Surgical History (Last Reviewed 05/17/21 @ 13:31 by Flip Krishnamurthy MD) Anesthesia complication History of cataract removal with insertion of prosthetic lens (2008) Status post delivery (07/09/75) Status post cholecystectomy (1991) Status post hysterectomy (1976) Occupational Therapy Inpatient Evaluation/Re-Eval M1 PT/OT-IP Prior Functional Status Start: 05/17/21 11:57 Freq: NEEDED Status: Active Protocol: Document 05/18/21 09:55 CGR (Rec: 05/18/21 10:03 CGR [id number]) Medical Review Prior Functional Status Medical History Reviewed Yes Communication Pt is able to make her needs known Mobility and Gait Pt states she is modified indpendent using 4WW. She has a history of recurrent falls Activities of Daily Living and IADL's Pt states she manages her own ADL's. She has caregiver assist for five hours twice weekly. Her caregiver helps with laundry, cooking, cleaning. Prior Functional Level (Other details) Pt has history of left frontal lobe CVA and left brain aneurysm. Social History Household Members none Living Arrangements Apartment/Condo Number of Stairs To Enter/Railing? Pt lives in first floor apartment with no stairs. 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 She has supportive children. At least one of them lives in [place]. Pt gave permission for PT to contact her daughter but unable to connect by phone. M1 PT/OT-IP Prior Functional Status Start: 05/18/21 09:55 Freq: NEEDED Status: Active Protocol: Document 05/18/21 09:55 CGR (Rec: 05/18/21 10:03 CGR [id number]) Medical Review Prior Functional Status Medical History Reviewed Yes Communication Pt is able to make her needs known Mobility and Gait Pt states she is modified indpendent using 4WW. She has a history of recurrent falls Activities of Daily Living and IADL's Pt states she manages her own ADL's. She has caregiver assist for five hours twice weekly. Her caregiver helps with laundry, cooking, cleaning. Prior Functional Level (Other details) Pt has history of left frontal lobe CVA and left brain aneurysm. Social History Household Members none Living Arrangements Apartment/Condo Number of Stairs To Enter/Railing? Pt lives in first floor apartment with no stairs. 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 She has supportive children. At least one of them lives in [place]. Pt gave permission for PT to contact her daughter but unable to connect by phone. M2 OT-IP Current Condition Start: 05/18/21 09:55 Freq: Status: Active Protocol: Document 05/18/21 09:55 CGR (Rec: 05/18/21 10:03 R [id number]) Occupational Therapy Current Condition Current Condition Evaluation Date 05/18/21 Treatment Diagnosis transient vision loss L eye and persistent expressive aphasia Diagnosis Onset Date 05/16/21 M3 OT- IP Subjective and Pain Start: 05/18/21 09:55 Freq: Status: Active Protocol: Document 05/18/21 09:55 CGR (Rec: 05/18/21 10:03 R [id number]) OT- Subjective Occupational Therapy Visit Type Type Initial Evaluation Visit Start Time 08:54 Visit Stop Time 09:07 Total Visit Minutes 13 Notes Pt in bathroom when OT entered . OT Pain Assessment Pain When Pain Assessed At Rest Pain Present Pain Present Denied Pain M4 OT- IP ADL's Start: 05/18/21 09:55 Freq: Status: Active Protocol: Document 05/18/21 09:55 CGR (Rec: 05/18/21 10:03 CGR [id number]) OT [id number] Comments OT Self-Feeding Comments not meal time OT ADL-Grooming Comments OT Grooming Comments not performed OT ADL-Oral Care Comments Oral Care Comments not performed OT ADL-Dressing General Eval Lower Body Dressing Ability Independent Areas Needing Assistance Socks OT ADL-Toileting General Evaluation Toileting Ability Independent Comments OT Toileting Comments seated on toielt OT ADL-Bathing Comments OT Bathing Comments not performed M5 OT- IP IADL's Start: 05/18/21 09:55 Freq: Status: Active Protocol: Document 05/18/21 09:55 CGR (Rec: 05/18/21 10:03 R [id number]) OT-Instrumental Activities of Daily Living Deficits IADL Deficits Identified No Deficits Home Safety Awareness Awareness of Need for Assistance at Home Good Awareness Ability to Problem Solve Emergency Able to Problem Solve Situations Medication Management Medication Management No Deficits Identified Money Management Money Management No Deficits Identified Meal Preparation Meal Preparation No Deficits Identified Data Entry Supervisor Data Entry Supervisor No Deficits Identified Driving Driving Comments Pt does not drive at baseline M6 OT- IP Functional Cognition Start: 05/18/21 09:55 Freq: Status: Active Protocol: Document 05/18/21 09:55 CGR (Rec: 05/18/21 10:03 R [id number]) Cognitive Factors Limiting Selfcare Function Cognitive Ability Level of Alertness Alert Patient Orientation Name,Age,Birthday,Month,Date, Day of Week,Place,Situation Cognitive Comments Cognitive Assessment Comments Pt appears to be at her baseline for cognition per daughter and pt. OT- Vision and Hearing OT- Hearing Assessment OT- Hearing Assessment WFL OT- Vision Assessment Visual Acuity Glasses All The Time Visual Attentiveness WFL Occular Pursuits WFL M7 OT- IP Mobility and Balance Start: 05/18/21 09:55 Freq: Status: Active Protocol: Document 05/18/21 09:55 CGR (Rec: 05/18/21 10:03 R [id number]) OT-Transfer Assessment Sit to and From Stand Sit to and from Stand Independent Transfers Transfer Ability Independent Technique Transfer Destination Bed,Toilet Transfer Technique Stand Step Pivot OT- Balance Assessment Sitting Balance and Reactions Static Sitting Balance Ability Normal Dynamic Sitting Balance Ability Normal M8 OT- IP Objective Assessments Start: 05/18/21 09:55 Freq: Status: Active Protocol: Document 05/18/21 09:55 CGR (Rec: 05/18/21 10:03 CGR [id number]) OT Gross Range of Motion Upper Extremity Range of Motion Assessment Within Functional Limits OT Strength Upper Extremity Strength Assessment Within Functional Limits Comments Strength Comments 4+/5 OT- Coordination Assessment Upper Extremity Finger to Nose Test Within Functional Limits Finger Tapping Test Within Functional Limits Comments Coordination Comments Pt states she has to focus more on her right hand OT-Muscle Tone Assessment Muscle Tone WNL Yes M9 OT- IP Assessment and Plan Start: 05/18/21 09:55 Freq: Status: Active Protocol: Document 05/18/21 09:55 CGR (Rec: 05/18/21 10:03 CGR [id number]) OT Summary Assessment and Plan Potential Rehabilitation Potential Excellent Analytic Complexity at Evaluation Low Summary Progress Towards Goals Goals Met Assessment Summary Pt presents as a low complexity evaluation s/p admit for cva vs tia. Pt displays no deficits to ADLs for functional mobility at this time. Pt states that her speech has improved in the last few days. No further OT needs. Frequency of Treatment Frequency Of Treatment Discharge Discharge Recommendations OT Discharge Recommendations Home Transportation Needs at Discharge Private Vehicle
--- NOTE | 2021-05-18 09:38 | ST.IPIE ---
Visit Care Team Role Provider Type Magalis Hough DO Emergency Provider Physician Referring Provider Specialty: Emergency Medicine Address: [address] [place] [address], [id number] Email: [email or web address] Lilia Toth MD Attending Provider Physician Primary Care Provider Specialty: Family Practice Address: [address] [place] [address] [place], [address] Email: [email or web address] Flip Krishnamurthy MD Admit Provider Physician Other Providers Specialty: Family Practice Address: [address] [place] [address], [address] Email: [email or web address] Current Diagnoses Cerebral infarction, unspecified (05/16/21) Past Medical History (Last Reviewed 05/17/21 @ 13:31 by Flip Krishnamurthy MD) Aneurysm (Medical) Asthma (Medical) Cataract (Medical 2011) Cervical cancer (Medical 1975) Chronic back pain (Medical 2009) Chronic headaches (Medical) Colon polyps (Medical 2012) CTS (carpal tunnel syndrome) (Medical 2014) 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 thinners Herniated nucleus pulposus, L2-3 left (Medical) Hypertension (Medical 1974) Migraines (Medical) Spondylolisthesis at L4-L5 level (Medical) Stroke (Medical 2014) T11 vertebral fracture (Medical) T12 burst fracture (Medical) Vertigo (Medical 2014) ST IP Initial Evaluation Report CREMATORY ATTENDANT Adult Cognitive Linguistic Eval Start: 05/18/21 09:23 Freq: Status: Active Protocol: Document 05/18/21 09:24 SHENG (Rec: 05/18/21 09:30 ZS [id number]) Adult Cognitive Linguistic Evaluation Session Time Visit Start Time 09:00 Visit Stop Time 09:20 Total Visit Minutes 20 Setting Assessment Location Acute Care Visit Type Note Type Initial evaluation Next Note Type Next Note Type Treatment Note Patient Information Identification Type Name,Wristband Patient History Per H&P: Elsi Rodriguez is a 76 year old female with past hx of CVA and carotid aneurysm clipping x2 presented to ED yesterday evening with complaint of transient vision loss in L eye and persistent expressive aphasia that morning. She otherwise feels fine her vision is back to regular and she is very frustrated with her expressive difficulties. Histroy of mild diabetes hyperlipidemia hypertension and neuropathy for which she takes gabapentin and celebrex. Lives in town generally independent. Hx of allergy to cheap metals this was an issue with aneurysm clipping. Did just get new glasses 2 days ago which are very tight in the temples. Initial presentation of vision loss transient in left eye x2 . And then aphasia. MRI is consistent with cerebrovascular accident. Hearing Hearing Level Normal Vision Vision Status Impaired Comments Corrective lenses Previous Therapy Previous Speech-Language Therapy No Subjective Patient Report Patient was seated on edge of bed with daughter at bedside when CREMATORY ATTENDANT arrived. She was finishing an evaluation with the OT and receiving medications from her nurse. Patient reported significant improvement with word finding today, though still has difficulty when she is speaking quickly. Pt stated she will sometimes say something she does not mean to say. Assessment Oral Motor Examination Completed No Informal Assessment Receptive Language Normal Yes Pragmatic Language Normal Yes Speech Normal Yes Cognition Normal Yes Formal Assessment Results Observed pt in interactions with OT, nurse, and daughter. Pt made one error in production of water exhibiting a phonemic paraphasia, which she self- corrected. She identified 10/ 10 objects accurately when shown a picture and exhibited no word finding difficulties despite fast rate of speech. Pt reported reduced frustration with word finding difficulties, assuming it will continue to improve as it has been. Provided pt education regarding recovery following a stroke and will follow-up tomorrow to ensure continued recovery of expressive language skills and provide strategies and education as needed. Findings/Results Language Function Within functional limits Cognitive Function Within normal limits Findings Pt presents with expressive and receptive language WFL. She experiences some mild word finding difficulty, which results in frustration as she is a very social person. Will monitor for continued improvement of expressive language skills and provide strategies as needed. Cognitive Communication Deficits Self-awareness of Cognitive- Situational awareness ( Communication Deficits recognition of problem in context;in real time) Prognosis Prognosis Good Based on Cognitive status,Family support,Duration of symptoms/ severity,Time since onset Plan of Care Speech-Language Treatment Yes Frequency Follow-up x1 Patient/Caregiver Education Described results of evaluation,Patient expressed understanding of evaluation, Patient expressed agreement with goals and treatment plans ,Family/caregivers expressed understanding of evaluation, Family/caregivers expressed agreement with goals and treatment plan Short Term Goals Follow-up on expressive language skills to ensure continued improvement of word finding. Provide strategies and pt education as needed. Discharge Recommendations Home with Home Health
--- NOTE | 2021-05-18 11:44 | PT.IPTN ---
Current Diagnoses Cerebral infarction, unspecified (05/16/21) Physical Therapy Treatment Note M2 PT-IP Current Condition Start: 05/17/21 11:57 Freq: NEEDED Status: Active Protocol: Document 05/17/21 13:33 AW (Rec: 05/17/21 14:31 AW [id number]) Physical Therapy Current Condition Current Condition Evaluation Date 05/17/21 Treatment Diagnosis CVA; falls; decreased balance; difficulty in walking Onset Date 05/16/21 M3 PT-IP Subjective Start: 05/17/21 11:57 Freq: NEEDED Status: Active Protocol: Document 05/18/21 11:38 KS (Rec: 05/18/21 12:43 KS [id number]) Subjective Physical Therapy Visit Type Type Treatment Note Visit Start Time 11:28 Visit Stop Time 11:44 Total Visit Minutes 16 Number of CEMENT FINISHER HELPER Visits 1 Physical Therapy Visit Comments Patient Comments Pt agreeable to working w/ therapy. M4 PT-IP Mobility and Gait Start: 05/17/21 11:57 Freq: NEEDED Status: Active Protocol: Document 05/18/21 11:38 KS (Rec: 05/18/21 12:43 KS [id number]) PT-Bed Mobility Assessment Supine to Sit Supine to Sit Standby Assistance Sit to Supine Sit to Supine Standby Assistance Scooting Scooting to Edge of Bed Standby Assistance PT-Transfer Assessment Sit to and From Stand Sit to and from Stand Standby Assistance,Use of Upper Extremities Equipment Transfer Assistive Device None,Gait Belt Orthotic/Prosthetic Devices or Brace: No Transfers Transfer Destination Bed Transfer Technique Pt ambulated w/o AD Transfer Ability Level of Assist Standby Assistance,Use of Upper Extremities Comments Mobility Comments Pt in bed upon arrival and agreeable to ambulation around room. SBA for sup<>sit, scooting EOB, and sit<>stand w / FWW. She ambulated ~100 ft around room w/o AD SBA, no LOB but pt admits to several falls at home. Instructed pt in balance exercises including NBOS w/ headturns and tandem stance, pt w/ poor balance requiring counter support during both, but w/ increased instability during tandem stance. Pt returned to bed and left in bed w/ all needs in reach and RN in room. Gait Assessment Gait Gait Assistance Required: Standby Assistance Distance (Feet) 100 Assistive Devices Assistive Device None,Gait Belt Orthotic/Prosthetic Devices or Brace: No Gait Deviations General Gait Pattern Decreased Stride Length, Decreased Feet Clearance Factors Limiting Gait Function Factors Limiting Gait Function Decreased Strength,Poor Balance Comments Gait Comments Pt ambulated w/o AD. States she has FWW at home but it feels cumbersome for her to use while in home, however she admits to multiple falls. Encouraged FWW for home use until she is able to improve balance and stability from HHPT which she is interested in receiving. Stair Climbing Assessment Comments Stair Climbing Comments Not assessed. PT-Balance Assessment Sitting Balance and Reactions Static Sitting Balance Ability Good Dynamic Sitting Balance Ability Good Standing Balance and Reactions Static Standing Balance Ability Fair Dynamic Standing Balance Ability Poor Device Used None M5 PT-IP Objective Assessments Start: 05/17/21 11:57 Freq: NEEDED Status: Active Protocol: Document 05/17/21 13:33 AW (Rec: 05/17/21 14:31 AW [id number]) Orientation Orientation/Cognition Level of Alertness Alert Orientation Name,Day of Week,Place, Situation Language Function Ability Expressive Aphasia,Word Finding Difficulties Safety Awareness Understands Safety Issues Memory Description Short Term Impaired Comments Pt struggled with word-finding throughout evaluation. Gross Range of Motion Lower Extremity ROM Assessment Within Functional Limits Strength Lower Extremity Strength Assessment Within Functional Limits Comments Strength Comments No unilateral deficit identified. Coordination Assessment Gross Coordination Gross Coordination Impaired Assessment Pronation/Supination Test Minimal Impairment Sensation Assessment Sensation Gross Sensation WNL Muscle Tone Muscle Tone WNL Yes M6 PT-IP Treatment Start: 05/17/21 11:57 Freq: NEEDED Status: Active Protocol: Document 05/18/21 11:38 KS (Rec: 05/18/21 12:43 KS [id number]) Physical Therapy Treatment Education Education Provided Safety Other Treatments Other Treatment Performed NBOS w/ head turns LRUD Tandem stance M7 PT-IP Assessment and Plan Start: 05/17/21 11:57 Freq: NEEDED Status: Active Protocol: Document 05/18/21 11:38 KS (Rec: 05/18/21 12:43 KS [id number]) PT Summary Assessment and Plan Potential Rehabilitation Potential Good Status of Condition at Evaluation Evolving Summary Impairments Balance,Coordination,Transfers ,Gait Assessment Summary Pt requiring SBA for mobility, transfers, and ambulation w/o AD for ~100 ft however appears somewhat unsteady and admits to several falls. Pt has FWW at home that she uses occasionally, but prefers not to use it. She had poor tolerance for balance exercises and will benefit from HHPT to improve balance and stability. Encouraged pt to use FWW until her balance improves. Will plan to try 4WW tomorrow. Goals Bed Mobility Goal Independent Transfer Goal Independent,Four Wheeled Walker Gait Goal Independent,Four Wheel Walker Gait Distance 200 Days to Meet Goals 5 Frequency of Treatment Frequency Of Treatment Once a Day Treatment Plan Physical Therapy Treatment Plan Bed Mobility Training,Transfer Training,Gait Training, Therapeutic Exercise,Balance Retraining,Discharge Planning, Hot or Cold Pack,Neuromuscular Re-ed,Coordination Retraining Other Recommendations and Next Treatment Assess gait with 4WW Focus Precautions Other Precautions falls Recommendations To Nursing Amount of Assist Needed Standby Assistance,1 Person Assist Discharge Recommendations PT Discharge Recommendations Home with Assistance,Home with 24/7 Assist Available,Home Health Transportation Needs at Discharge Private Vehicle
--- NOTE | 2021-05-18 18:37 | PC.NURSE ---
Shift summary: Patient states she is doing much better today, and is hopeful to be discharged to home tomorrow with home health. NIH scale 1 today. She anticipates going to stay for a few days with her family. Good appetite. Denies pain. Up with assistance to bathroom, she reports she had 2 soft/loose BM's today and is urinating without difficulty. Sinus rhythm on telemetry today. Echo completed, and labs ordered for am. Call light within reach. Bed alarm on for safety.
[2021-05-18] MEDS: ATORVASTATIN 20 MG TABLET 80 MG PO (20:55)
--- NOTE | 2021-05-18 22:06 | PC.NURSE ---
Patient is alert and oriented. Still having some delayed responses and word finding difficulty but much improved from last night. Breath sounds CTA with RA sat of 97%. HRR w/telemetry reading of SR. BP trends high and was 157/62 on last vitals check. Denies nausea. BT present and had BM earlier today. Denies dysuria, frequency or urgency with urination. Able to turn self in bed and gets up to BR w/SBA for safety. Continues to refuse SCD's so reminded to ankle wave. Denied pain. Fall risk score is high and bed alarm is activated.
[2021-05-19 00:12] VITALS: BP 127/63; PULSE 58; RESP 16; TEMP 36.4; O2SAT 94
[2021-05-19 04:18] VITALS: BP 144/54; PULSE 65; RESP 16; TEMP 36.2; O2SAT 95
[2021-05-19 04:59] LABS: Add Manual Diff / Slide Review NO; Basophils Absolute Auto 0 /uL (0-100); Eosinophils Absolute Auto 200 /uL (0-450); Eosinophils Percent Auto 4.6 % (2-4); Hematocrit 36.1 % (36-46); Hemoglobin 12.3 g/dL (12.0-16.0); Lymphocytes Absolute Auto 2100 /uL (1100-4500); Lymphocytes Percent Auto 42.2 % (25-40); Mean Corpuscular HGB Conc 34.2 % (30-36); Mean Corpuscular Hemoglobin 31.4 PG (26-34); Mean Corpuscular Volume 91.8 fL (80-100); Monocytes Absolute Auto 600 /uL (0-900); Monocytes Percent Auto 11.8 % (3-14); Neutrophils Absolute Auto 2100 /uL (1500-7000); Neutrophils Percent Auto 40.4 % (50-75); Platelet Count 224 X10^3/uL (150-400); Red Blood Cell Count 3.93 X10^6/uL (4.0-5.2); Red Cell Distribution Width 13.3 % (11.6-14.8); White Blood Cell Count 5.1 X10^3/uL (4.5-11.0)
[2021-05-19 05:32] LABS: Alanine Aminotransferase 19 IU/L (<35); Albumin 3.9 g/dL (3.5-5.0); Albumin Globulin Ratio 1.4 (1.0-2.8); Alkaline Phosphatase 62 U/L (38-126); Aspartate Aminotransferase 24 IU/L (14-36); BUN Creatinine Ratio 15.2 (6-22); Bilirubin Total 0.8 mg/dL (0.2-1.3); Blood Urea Nitrogen 12 mg/dL (7-17); C-Reactive Protein Quant 0.7 mg/dL (<1.0); Calcium 9.2 mg/dL (8.4-10.2); Carbon Dioxide 29 mmol/L (22-32); Chloride 103 mmol/L (98-107); Estimated Glomerular Filt Rate > 60.0 mL/min (>60); Globulin 2.7 g/dL (1.7-4.1); Glucose 100 mg/dL (80-110); HEMOLYSIS 19 (0-50); Potassium 5.2 mmol/L (3.4-5.1); Sodium 139 mmol/L (137-145); Total Protein 6.6 g/dL (6.3-8.2)
[2021-05-19 05:45] LABS: Erythrocyte Sedimentation Rate 18 MM/HR (0-20)
[2021-05-19 07:00] VITALS: BP 130/63; PULSE 65; RESP 19; TEMP 36.6; O2SAT 98
--- NOTE | 2021-05-19 09:09 | PM.DS.1 ---
History of Present Illness History of Present Illness Chief complaint: poss. stroke Discharge Providers Provider Date of admission: 05/16/21 21:52 Discharge Date: 05/19/21 Primary care physician: Lilia Toth MD Consults: 05/17/21 11:10 Consult to Occupational Therapy Evaluate & Treat Comment: Physician Instructions: Evaluate and treat Consult to Physical Therapy Evaluate & Treat Comment: Physician Instructions: Evaluate and Treat 05/17/21 12:31 Consult to Speech Therapy Evaluate & Treat Comment: expressive aphasia Physician Instructions: Evaluate and treat Discharge provider: Buddy Rayo MD Summary Hospital Course Discharge Diagnosis: Acute left cerebral ischemic hemispheric stroke with transient visual loss and aphasia. Patient was admitted to the hospital after 2 episodes of transient vision loss and difficulty with speech. She was brought to the emergency department for evaluation and underwent CT CT angiogram and MRI scanning. Patient was found to have an acute ischemic stroke. Patient had blood pressure management during hospital stay. She was on a statin medication before this was continued. She was on a baby aspirin at home and this was changed to a full-strength aspirin. During her hospital stay she had a PT OT speech evaluation. Patient was swallowing eating well ambulating well. Patient was placed on telemetry monitoring patient was found to have no signs of the heart arrhythmias that were concerning for embolic stroke she had an echocardiogram which was relatively normal.Patient had significant improvement of symptoms during her hospital stay. At the time of discharge she still has some limited difficulty with word finding. Discharge plan will be to follow-up with her primary care physician. Patient will go to a full-strength aspirin at 325 mg continue with her high-dose statin therapy and blood pressure management recommend outpatient neurological evaluation History of carotid artery aneurysm. No acute signs of changes On imaging finding. Unlikely source of her cerebrovascular accident or injury. Do recommend outpatient neurological follow-up. Hypertension. Patient's blood pressure was mildly elevated. This was not aggressively treated in the hospital. She will need follow-up outpatient for blood pressure control. Diabetes type 2. Patient's blood sugars were well controlled patient was continued on her home medications as well as insulin sliding scale Ehsan coverage. Exam Vital Signs (past 8 hours): - 05/19/21 04:18 05/19/21 07:00 Temperature 97.1 F L 97.8 F Pulse Rate 65 65 Respiratory Rate 16 19 Blood Pressure 144/54 H 130/63 Pulse Oximetry 95 98 Oxygen Delivery Method Room Air Oxygen Flow Rate 0 Objective Labs Result Diagrams: 05/19/21 04:45 05/19/21 04:45 Labs: Laboratory Results - last 24 hr 05/19/21 05/19/21 05/19/21 04:45 04:45 04:45 WBC 5.1 RBC 3.93 L Hgb 12.3 Hct 36.1 MCV 91.8 MCH 31.4 MCHC 34.2 RDW 13.3 Plt Count 224 Neut % (Auto) 40.4 L Lymph % (Auto) 42.2 H [place] % (Auto) 11.8 Eos % (Auto) 4.6 H Baso % (Auto) 1.0 Neut # (Auto) 2100 Lymph # (Auto) 2100 [place] # (Auto) 600 Eos # (Auto) 200 Baso # (Auto) 0 ESR 18 Sodium 139 Potassium 5.2 H D Chloride 103 Carbon Dioxide 29 BUN 12 Creatinine 0.79 Estimated GFR > 60.0 BUN/Creatinine Ratio 15.2 Glucose 100 Calcium 9.2 Total Bilirubin 0.8 AST 24 ALT 19 Alkaline Phosphatase 62 C-Reactive Protein 0.7 Total Protein 6.6 Albumin 3.9 Globulin 2.7 Albumin/Globulin Ratio 1.4 [facility] Medical History Aneurysm Asthma Cataract (2011) Cervical cancer (1975) Chronic back pain (2009) Chronic headaches Colon polyps (2012) CTS (carpal tunnel syndrome) (2014) Drug resistance Herniated nucleus pulposus, L2-3 left Hypertension (1974) Migraines Spondylolisthesis at L4-L5 level Stroke (2014) T11 vertebral fracture T12 burst fracture Vertigo (2014) Surgical History Anesthesia complication History of cataract removal with insertion of prosthetic lens (2008) Status post delivery (07/09/75) Status post cholecystectomy (1991) Status post hysterectomy (1976) Family History Brother Diabetes mellitus Heart disease Essential hypertension High cholesterol Lung cancer Father Heart disease Essential hypertension Mother Diabetes mellitus Cerebrovascular accident (CVA), unspecified mechanism Heart attack Sister Diabetes mellitus Heart disease Essential hypertension High cholesterol Kidney failure Grandfather No problems noted. Grandmother No problems noted. Grandfather No problems noted. Grandmother No problems noted. Social History marital status: household members: none pets and animals: No education level: high school mikey/alevism: [employer] other: computer games,play with grandkids,cooking seatbelt use: always water heater temp set < 120 deg: Yes working smoke detector in home: Yes fire extinguisher in home: No carbon monox detector in home: No firearms in home: Yes Smoking Status: Former smoker alcohol intake: former during the past year weight has: remained stable well-balanced diet: about half the time daily servings fruits/ve-4 caffeine: Yes eating out: 4 or more times/week Type(s) of exercise: walking frequency: 3-4 times per week duration: 60-90 minutes/day Discharge Plan Discharge Plan Patient Disposition: Home Discharge orders & Medications Prescriptions: New aspirin 325 mg Tablet,Delayed Release (Dr/Ec) 325 mg PO DAILY Qty: 90 0RF Continued cyanocobalamin (vitamin B-12) 5,000 mcg capsule 5,000 mcg PO DAILY 0RF albuterol sulfate [ProAir HFA] 90 mcg/actuation HFA aerosol inhaler 2 puff INHALATION Q4-6H PRN (Reason: shortness of breath or wheezing) Qty: 8.5 0RF Rx Instructions: . atorvastatin 40 mg tablet See Rx Instructions .ROUTE .COMPLEX Qty: 90 2RF Dose Instruction: take 1 tablet by mouth once daily Rx Instructions: take 1 tablet by mouth once daily lisinopril 10 mg tablet 30 mg PO DAILY Qty: 90 2RF Rx Instructions: May increase to 40mg per Dr. Toth if B/P still too high. 01/13/21 nystatin 100,000 unit/gram cream 1 applic topical BID Qty: 30 1RF Rx Instructions: Apply to affected area twice daily after washing with soap and water. Pat dry. gabapentin 300 mg capsule 300 mg PO .COMPLEX Qty: 90 2RF Rx Instructions: 1-2 PO Tid to begin at HS and titrate to pain relief celecoxib [Celebrex] 200 mg capsule 200 mg PO DAILY Qty: 30 2RF metformin 500 mg tablet extended release 24 hr 500 mg PO BID 0RF acetaminophen 500 mg capsule 500 mg PO Q6H 0RF Discontinued aspirin 81 MG tablet,delayed release (DR/EC) 81 mg PO QDAY Qty: 0 0RF Follow up/Referrals: Lilia Toth MD [Primary Care Provider] - Discharge Data Primary Care Provider: Lilia Toth Quality VTE Deep Vein Thrombosis/Pulmonary Embolism Present on Admission: No
[2021-05-19 09:15] VITALS: BP 130/63; PULSE 65
[2021-05-19] MEDS: CELECOXIB 200 MG CAPSULE PO (09:15)
[2021-05-19] MEDS: lisinopriL 10 MG TABLET 30 MG PO (09:15)
[2021-05-19] MEDS: GABAPENTIN 300 MG CAPSULE 600 MG PO (09:16)
[2021-05-19] MEDS: ASPIRIN EC 325 MG TABLET PO (09:16)
[2021-05-19] MEDS: METFORMIN XR 500 MG TABLET PO (09:16)
[2021-05-19] MEDS: SODIUM CHLORIDE 0.9% FLUSH 10 ML IV (09:17)
[2021-05-19] MEDS: ENOXAPARIN 40 MG/0.4 ML SYRINGE SUBCUT (09:17)
--- NOTE | 2021-05-19 10:09 | ST.IPTN ---
Visit Care Team Role Provider Type Magalis Hough DO Emergency Provider Physician Referring Provider Address: [address] [place] [address], [address] Lilia Toth MD Attending Provider Physician Primary Care Provider Address: [address] [place] [address], [address], [place], [address] Flip Krishnamurthy MD Admit Provider Physician Other Providers Address: [address] [place] [address] A, [place], [address] PREVENTION COORDINATOR Treatment Note PREVENTION COORDINATOR Treatment Note Start: 05/19/21 10:01 Freq: Status: Active Protocol: Document 05/19/21 10:02 SHENG (Rec: 05/19/21 10:09 SHENG [id number]) Speech Pathology Treatment Note Session Time Visit Start Time 09:30 Visit Stop Time 09:45 Total Visit Minutes 15 Visit Information Visit Number 1 Setting Treatment Setting Acute Care Visit Type Note Type Treatment Note General Information Patient History Per H&P: Elsi Rodriguez is a 76 year old female with past hx of CVA and carotid aneurysm clipping x2 presented to ED yesterday evening with complaint of transient vision loss in L eye and persistent expressive aphasia that morning. She otherwise feels fine her vision is back to regular and she is very frustrated with her expressive difficulties. History of mild diabetes hyperlipidemia hypertension and neuropathy for which she takes gabapentin and celebrex. Lives in town generally independent. Hx of allergy to cheap metals this was an issue with aneurysm clipping. Did just get new glasses 2 days ago which are very tight in the temples. Initial presentation of vision loss transient in left eye x2 . And then aphasia. MRI is consistent with cerebrovascular accident. Subjective Identification Type Name Identification Reconciled With Medical Record Others Present Family Observations/Patient Presentation Pt was seated upright in bed with daughter at bedside when PREVENTION COORDINATOR arrived. She reported improved word finding today and daughter added that when pt slows rate of speech, she does not have difficulty with word finding. Chief Complaint(s) Language Objective Short Term Goals Follow-up on expressive language skills to ensure continued improvement of word finding. Provide strategies and pt education as needed. Treatment Activities Discussed strategies for word finding and pt demonstrated understanding of all strategies. Provided pt education on strokes and recovery. Discussed option for outpatient speech therapy following discharge. Assessment Patient Response to Treatment Excellent Rehab Potential Excellent Impairments Identified Expressive Language Progress Towards Goals Excellent Progress Assessment of Overall Progress Improving Assessment of Improvement Pt exhibited understanding of all strategies discussed and identified synonyms and descriptions for 3/3 objects in room. Pt restated and demonstrated strategies for daughter. Discussed option for outpatient speech therapy following discharge and pt indicated she feels comfortable with her speech at this time and does not need outpatient speech therapy. She will contact her PCP if she would like additional services after discharge. Discharging from speech therapy at this time due to pt's speech being WNL and demonstrated understanding of strategies. Reviewed with Patient Goals,Progress Being Made Patient/Caregiver Understanding Excellent Plan Provided Patient/Caregiver Instruction Plan of Care,Questions/ Concerns Therapy Recommendations Discharge from Speech Therapy Reason for Discharge Pt met goals and speech is WNL .
--- NOTE | 2021-05-19 10:54 | PC.NURSE ---
Pt alert and oriented offers no overt complaint. Speech clear able to make needs known. Up SBA taking b'fast easily. Conversant. Expecting to go home once daughter Rosalina arrives. Rosalina here. PT and CM discussing plan with Pt and daughter. D/c instructions given and Pt and daughter state understanding. IV d/c'd per protocol. Belongings accounted for and packed up by daughter. Pt escorted to car via w/c by Paradise ADKINS.
--- NOTE | 2021-05-19 10:58 | PT-IP ANOTE ---
Attempted to see pt at 10:58, pt was dressed and ready to be d/c and refused stating no further needs. Pts daughter in room and verbalized frustration over pt not having HHPT orders and needing to schedule on her own.
[2021-05-19 11:00] VITALS: BP 138/73; PULSE 70; RESP 21; TEMP 36.9; O2SAT 95
== END 2021-05-19 11:06 | disposition home or self-care (01) | DRG 65 ==
LOC: ED 19:24 → AC 21:53
PROVIDERS: Family Medicine; Admitting Provider Family Medicine; Emergency Provider Emergency Medicine; PCP Family Medicine; Referring Provider Emergency Medicine; Visit Provider Family Medicine
DX: I63.9 Cerebral infarction, unspecified (principal); H53.122 Transient visual loss, left eye; R47.01 Aphasia; I10 Essential (primary) hypertension; E78.5 Hyperlipidemia, unspecified; J45.909 Unspecified asthma, uncomplicated; E11.9 Type 2 diabetes mellitus without complications; G62.9 Polyneuropathy, unspecified; R29.702 NIHSS score 2; R29.701 NIHSS score 1; Z87.891 Personal history of nicotine dependence; Z79.84 Long term (current) use of oral hypoglycemic drugs; Z20.822 Contact with and (suspected) exposure to COVID-19; Z86.79 Personal history of other diseases of the circulatory system
CPT/HCPCS: 36415; 70450; 70496; 70498; 70553; 80048; 80053; 81003; 82550; 82962; 84484; 85025; 85610; 85651; 85730; 86140; 87635; 92507; 92523; 93005; 93010; 93306; 97162; 97165; 97530; 99285; C9803; J1650; J1815; Q9957; Q9967

== ENCOUNTER → 2021-05-29 12:07 | Outpatient (CLI) | payer MEDICARE, MEDICAID, SELFPAY ==
[2021-05-16 22:18] VITALS: BMI 30.9
[2021-05-29 13:09] LABS: Hemoglobin A1C% w Est Avg Glu 6.5 % (4.0-6.0)
[2021-05-29 13:19] LABS: BUN Creatinine Ratio 13.8 (6-22); Blood Urea Nitrogen 11 mg/dL (7-17); Calcium 9.6 mg/dL (8.4-10.2); Carbon Dioxide 29 mmol/L (22-32); Chloride 101 mmol/L (98-107); Estimated Glomerular Filt Rate > 60 mL/min (>60); Glucose 98 mg/dL (80-110); HEMOLYSIS < 15 (0-50); Potassium 4.3 mmol/L (3.4-5.1); Sodium 139 mmol/L (137-145)
== END ==
PROVIDERS: PCP Family Medicine; Referring Provider Family Medicine; Visit Provider Family Medicine
DX: E11.9 Type 2 diabetes mellitus without complications (principal)
CPT/HCPCS: 36415; 80048; 83036

== ENCOUNTER → 2022-03-03 10:54 | Outpatient (CLI) | payer MEDICARE, MEDICAID, SELFPAY ==
[2021-05-16 22:18] VITALS: BMI 30.9
--- NOTE | 2022-03-03 10:59 | DI.RAD.S_ITS ---
PROCEDURE: XR SHOULDER RT MIN 2V INDICATIONS: Injury 02/06 Pain w/ROM and at rest; muscle weakness TECHNIQUE: 3 views of the shoulder were acquired. COMPARISON: None. FINDINGS: Bones: No fractures or dislocations. No suspicious bony lesions. Visualized ribs appear intact. Soft tissues: No suspicious soft tissue calcifications. IMPRESSION: No acute osseous abnormality. If symptoms persist, follow-up radiographs and/or CT or MRI may be helpful for further evaluation. Dictated by: Isai Deras M.D. on 03/03/2022 at 16:38 Approved by: Isai Deras M.D. on 03/03/2022 at 16:40
== END ==
PROVIDERS: PCP Family Medicine; Referring Provider Physician Assistant; Visit Provider Physician Assistant
DX: M25.511 Pain in right shoulder (principal)
CPT/HCPCS: 73030

== ENCOUNTER 2022-03-15 17:04 | Emergency (ER) | payer MEDICARE, MEDICAID, SELFPAY ==
[2021-05-16 22:18] VITALS: BMI 30.9
[2022-03-15 17:09] VITALS: BP 181/78; PULSE 79; RESP 18; TEMP 36.2; O2SAT 98; BMI 34.3
--- NOTE | 2022-03-15 17:17 | DI.RAD.S_ITS ---
PROCEDURE: XR CHEST 1V INDICATIONS: chest pain TECHNIQUE: One view of the chest was acquired. COMPARISON: [facility], , CHEST 1 VIEW, 12/08/2016, 7:03. FINDINGS: Surgical changes and devices: None. Lungs and pleura: Lungs are clear. No pleural effusions or pneumothorax. Mediastinum: The cardiac contours are within normal limits. The aorta demonstrates calcification and tortuosity. Bones and chest wall: Age-appropriate bony degenerative changes are seen. No suspicious bony lesions. Overlying soft tissues appear unremarkable. IMPRESSION: Portable chest within normal limits for age. Dictated by: Rolando Brito M.D. on 03/15/2022 at 16:53 Approved by: Rolando Brito M.D. on 03/15/2022 at 16:54
[2022-03-15 18:03] LABS: Add Manual Diff / Slide Review NO; Basophils Absolute Auto 100 /uL (0-100); Eosinophils Absolute Auto 200 /uL (0-450); Eosinophils Percent Auto 3.3 % (2-4); Hematocrit 37.3 % (36-46); Hemoglobin 12.4 g/dL (12.0-16.0); Lymphocytes Absolute Auto 2300 /uL (1100-4500); Lymphocytes Percent Auto 36.2 % (25-40); Mean Corpuscular HGB Conc 33.4 % (30-36); Mean Corpuscular Hemoglobin 30.8 PG (26-34); Mean Corpuscular Volume 92.3 fL (80-100); Monocytes Absolute Auto 600 /uL (0-900); Monocytes Percent Auto 9.5 % (3-14); Neutrophils Absolute Auto 3200 /uL (1500-7000); Platelet Count 258 X10^3/uL (150-400); Red Blood Cell Count 4.04 X10^6/uL (4.0-5.2); Red Cell Distribution Width 13.7 % (11.6-14.8); White Blood Cell Count 6.3 X10^3/uL (4.5-11.0)
[2022-03-15 18:08] LABS: COVID19 -Nasal RAPID Negative (Negative)
--- NOTE | 2022-03-15 18:09 | DI.CT.S_ITS ---
PROCEDURE: CT HEAD/BRAIN WO CON INDICATIONS: HTN, dizziness, CVA 05/29 TECHNIQUE: Noncontrast 4.5 mm thick angled axial sections acquired from the foramen magnum to the vertex, with coronal and sagittal reformats. For radiation dose reduction, the following was used: automated exposure control, adjustment of mA and/or kV according to patient size. COMPARISON: [facility], MR, MR HEAD/BRAIN WO/W CON, 05/17/2021, 15:55. [facility], CT, CT STROKE, 05/16/2021, 19:24. [facility], CT, HEAD WITHOUT CONTRAST, 12/08/2016, 7:30. FINDINGS: Image quality: Excellent. CSF spaces: Basal cisterns are patent. No extra-axial fluid collections. The ventricles are symmetric in size and shape. Brain: No intracranial bleeds or masses. There is cerebral volume loss for age, with resultant ventricular and sulcal prominence. There are periventricular and deep white matter chronic small vessel ischemic changes. There is intracranial internal carotid artery atherosclerosis. Skull and face: Left craniotomy changes Sinuses: Visualized sinuses and mastoids are clear. IMPRESSION: No intracranial hemorrhage or other acute intracranial abnormality. Dictated by: Isai Deras M.D. on 03/15/2022 at 18:38 Approved by: Isai Deras M.D. on 03/15/2022 at 18:43
[2022-03-15 18:17] LABS: INR 0.9 (0.9-1.3); Prothrombin Time 10.3 SECONDS (10.1-12.7)
[2022-03-15 18:19] LABS: PTT Partial Thromboplastin Tim 36 SECONDS (26-36)
[2022-03-15 18:23] LABS: Alanine Aminotransferase 24 IU/L (<35); Albumin 4.3 g/dL (3.5-5.0); Albumin Globulin Ratio 1.6 (1.0-2.8); Alkaline Phosphatase 75 U/L (38-126); Aspartate Aminotransferase 26 IU/L (14-36); BUN Creatinine Ratio 17.6 (6-22); Bilirubin Total 0.5 mg/dL (0.2-1.3); Blood Urea Nitrogen 12 mg/dL (7-17); Calcium 9.3 mg/dL (8.4-10.2); Carbon Dioxide 29 mmol/L (22-32); Chloride 94 mmol/L (98-107); Creatine Kinase 34 U/L (30-135); Estimated Glomerular Filt Rate > 60 mL/min (>60); Globulin 2.7 g/dL (1.7-4.1); Glucose 118 mg/dL (80-110); HEMOLYSIS < 15 (0-50); Lipase 670 U/L (23-300); Magnesium 1.6 mg/dL (1.6-2.3); Sodium 133 mmol/L (137-145)
[2022-03-15 18:33] LABS: Troponin I < 0.012 ng/mL (0.01-0.034)
--- NOTE | 2022-03-15 18:57 | ED_ITS ---
HPI - Dizziness General Chief Complaint: Dizziness Stated Complaint: bp is high, light headed, low energy Time Seen by Provider: 03/15/22 18:09 Source: patient Mode of arrival: Ambulatory History of Present Illness HPI Narrative: 77F former smoker with history of hypertension, hyperlipidemia and admission for stroke earlier in the year presents with elevated blood pressure, feeling generally unwell and lightheaded for quite some time. She states that she actually feels quite well and is absent of symptoms other than right shoulder pa in while in the department but had mentioned distant family members how she had been feeling and was encouraged to come see us. She denies any headache or blurred vision. She denies any trouble with speech or extremity numbness, tingling or weakness. She denies any trouble swallowing and has no chest pain, nausea, vomiting, diarrhea or abdominal pain. She is been having trouble with both her low back and right shoulder for quite some time and admits that the discomfort has made it at times difficult to sleep and is starting to wear on her and she feels a bit depressed as a consequence. She denies any change in her medications. She denies any thoughts of hurting herself or others. She denies fever or chills. She has no recent trauma or injury. She denies any radiation of pain down her leg and denies numbness, tingling or weakness. She denies any loss of control of bowel or bladder. Her right shoulder has been hurting for some time, since a fall on resulting in a partial biceps tendon tear, she is in touch with Orthopedics but admits she is not been using her sling. She states the pain is increased with motion and improves with rest. Related Data Home Medications Medication Instructions Recorded Confirmed cyanocobalamin (vitamin B-12) 5,000 mcg PO DAILY 11/07/19 03/03/22 5,000 mcg capsule acetaminophen 500 mg capsule 500 mg PO Q6H 09/01/20 03/03/22 Previous Rx's Medication Instructions Recorded nystatin 100,000 unit/gram topical 1 applic topical BID #30 grams 01/29/21 cream aspirin 325 mg tablet,delayed 325 mg PO DAILY #90 tabs 05/19/21 release lisinopril 40 mg tablet 40 mg PO DAILY #90 tabs 05/29/21 atorvastatin 40 mg tablet See Rx Instructions .Route 09/30/21 .COMPLEX #90 tabs albuterol sulfate 90 mcg/actuation 2 puff inhalation Q4-6H PRN 11/04/21 aerosol inhaler (ProAir HFA) shortness of breath or wheezing #8.5 grams gabapentin 300 mg capsule 300 mg PO .COMPLEX #90 caps 12/09/21 celecoxib 200 mg capsule (Celebrex) 200 mg PO DAILY #30 caps 01/07/22 metformin 500 mg tablet,extended See Rx Instructions .Route 02/02/22 release 24 hr .COMPLEX #180 tabs Allergies Allergy/AdvReac Type Severity Reaction Status Date / Time clopidogrel [From PLAVIX] Allergy Mild thickened Verified 05/29/21 11:44 blood morphine [MORPHINE] Allergy Unknown ITCHING Verified 05/29/21 11:44 oxycodone [From PERCOCET] AdvReac Unknown HIGH BLOOD Verified 05/29/21 11:44 PRESSURE Review of Systems Review of Systems Narrative: GENERAL: See HPI HEENT: See HPI RESP: See HPI CARDIOVASCULAR: Denies chest pain, palpitations, orthopnea, edema, GASTROINTESTINAL: Denies nausea, vomiting, abdominal pain, diarrhea, constipation, melena. : Denies dysuria, frequency, incontinence, hematuria, urinary retention. MUSCULOSKELETAL: See HPI SKIN: Denies rash, skin lesions, or other NEUROLOGIC: Denies weakness, headache, numbness, change in speech, confusion, seizures, incoordination. PSYCHIATRIC: No concerning psychosocial issues. 12 point review of systems is negative except for those stated above Patient History Medical History Aneurysm Asthma Cataract (2011) Cervical cancer (1975) Chronic back pain (2009) Chronic headaches Colon polyps (2012) CTS (carpal tunnel syndrome) (2014) Drug resistance Herniated nucleus pulposus, L2-3 left Hypertension (1974) Migraines Spondylolisthesis at L4-L5 level Stroke (2014) T11 vertebral fracture T12 burst fracture Vertigo (2014) Surgical History Anesthesia complication History of cataract removal with insertion of prosthetic lens (2008) Status post delivery (07/09/75) Status post cholecystectomy (1991) Status post hysterectomy (1976) Family History Brother Diabetes mellitus Heart disease Essential hypertension High cholesterol Lung cancer Father Heart disease Essential hypertension Mother Diabetes mellitus Cerebrovascular accident (CVA), unspecified mechanism Heart attack Sister Diabetes mellitus Heart disease Essential hypertension High cholesterol Kidney failure Grandfather No problems noted. Grandmother No problems noted. Grandfather No problems noted. Grandmother No problems noted. Social History marital status: household members: none pets and animals: No education level: high school mi[employer]/sikhism: Baptism other: computer games,play with [employer],cooking seatbelt use: always water heater temp set < 120 deg: Yes working smoke detector in home: Yes fire extinguisher in home: No carbon monox detector in home: No firearms in home: Yes Smoking Status: Former smoker alcohol intake: former during the past year weight has: remained stable well-balanced diet: about half the time daily servings fruits/ve-4 caffeine: Yes eating out: 4 or more times/week Type(s) of exercise: walking frequency: 3-4 times per week duration: 60-90 minutes/day Smoking Status: Former smoker tobacco type: cigarettes alcohol intake frequency: 0-2 drinks per day Substance Use Type: does not use Exam Narrative Exam Narrative: GENERAL: [77] year old patient appears stated age. Well-developed patient, in mild distress. GCS 15 HEAD: Atraumatic. Normocephalic. EYES: Pupils equal round and reactive. Extraocular motions intact. No scleral icterus. No injection or drainage. ENT: Nose without bleeding, purulent drainage. Throat without erythema, to nsillar hypertrophy or exudate. Airway patent. NECK: Trachea midline. Non tender CARDIOVASCULAR: Regular rate and rhythm without murmurs, gallops, or rubs. RESPIRATORY: Clear to auscultation. Breath sounds equal bilaterally. No wheezes, rales, or rhonchi. GASTROINTESTINAL: Abdomen soft, non-tender, nondistended. Specifically no epigastric or upper abdominal pain EXTREMITIES: Right shoulder pain with range of motion No edema or joint tenderness. BACK: Nontender without deformity or crepitance. No flank tenderness. NEURO: AOx3. SKIN: No rash or erythema of visible areas Cranial nerves 2-12 intact NIH Stroke Scale 1a. LOC: Patient is alert and keenly responsive (0) 1b. LOC Questions: Patient answers both LOC questions accurately (0) 1c. LOC Commands: Patient performs both tasks correctly (0) 2. Best Gaze: Normal (0) 3. Visual: No visual loss (0) 4. Facial palsy: Normal symmetrical movements (0) 5. Motor arm: No drift (0) 6. Motor leg: No drift (0) 7. Limb ataxia: Absent (0) 8. Sensory: Normal (0) 9. Best language: No aphasia; normal (0) 10. Dysarthria: Normal (0) 11. Extinction and inattention: No abnormality (0) NIHSS: 0 Initial Vital Signs Initial Vital Signs: Vital Signs Temperature 97.2 F L 03/15/22 17:09 Pulse Rate 79 03/15/22 17:09 Respiratory Rate 18 03/15/22 17:09 Blood Pressure 181/78 H 03/15/22 17:09 Pulse Oximetry 98 03/15/22 17:09 Oxygen Delivery Method 03/15/22 17:09 Scores HEART Score Heart Score history: Slightly Suspicious Heart Score EKG: Normal Heart Score Age: > or = 65 years old Heart Score risk factors: > 3 risk factors or hx of atherosclerotic disease Heart Score troponin: < or = to normal limit Heart Score Total: 4 Course Orders Ordered: Discontinued Medications Aspirin (Aspirin 81 Mg Chew Tab) 324 mg PO NOW ONE Stop: 03/15/22 17:17 Last Admin: 03/15/22 20:14 Dose: Not Given Documented By: OW Vital Signs Vital signs: Vital Signs - 8 hr 03/15/22 19:57 03/15/22 20:15 03/15/22 20:16 Pulse Rate 74 Respiratory Rate 24 Blood Pressure 189/90 H 177/74 H Pulse Oximetry 97 96 Oxygen Delivery Method Room Air Room Air MDM - Dizziness Lab Data 03/15/22 17:49 03/15/22 17:49 Labs: Lab Results 03/15/22 03/15/22 03/15/22 Range/Units 17:43 17:49 17:49 WBC 6.3 (4.5-11.0) X10^3/uL RBC 4.04 (4.0-5.2) X10^6/uL Hgb 12.4 (12.0-16.0) g/dL Hct 37.3 (36-46) % MCV 92.3 (80-100) fL MCH 30.8 (26-34) PG MCHC 33.4 (30-36) % RDW 13.7 (11.6-14.8) % Plt Count 258 (150-400) X10^3/uL Neut % (Auto) 50.0 (50-75) % Lymph % (Auto) 36.2 (25-40) % [place] % (Auto) 9.5 (3-14) % Eos % (Auto) 3.3 (2-4) % Baso % (Auto) 1.0 (0-2) % Neut # (Auto) 3200 (8252-2540) /uL Lymph # (Auto) 2300 (7163-2956) /uL [place] # (Auto) 600 (0-900) /uL Eos # (Auto) 200 (0-450) /uL Baso # (Auto) 100 (0-100) /uL PT 10.3 (10.1-12.7) SECONDS INR 0.9 (0.9-1.3) APTT 36 (26-36) SECONDS Sodium (137-145) mmol/L Potassium (3.4-5.1) mmol/L Chloride (98-107) mmol/L Carbon Dioxide (22-32) mmol/L BUN (7-17) mg/dL Creatinine (0.52-1.04) mg/dL Estimated GFR (>60) mL/min BUN/Creatinine Ratio (6-22) Glucose (80-110) mg/dL Calcium (8.4-10.2) mg/dL Magnesium (1.6-2.3) mg/dL Total Bilirubin (0.2-1.3) mg/dL AST (14-36) IU/L ALT (<35) IU/L Alkaline Phosphatase (38-126) U/L Total Creatine Kinase (30-135) U/L CK-MB (CK-2) CK-MB (CK-2) Rel Index Troponin I (0.01-0.034) ng/mL Total Protein (6.3-8.2) g/dL Albumin (3.5-5.0) g/dL Globulin (1.7-4.1) g/dL Albumin/Globulin Ratio (1.0-2.8) Lipase (23-300) U/L SARS-CoV-2 (PCR) Negative (Negative) 03/15/22 Range/Units 17:49 WBC (4.5-11.0) X10^3/uL RBC (4.0-5.2) X10^6/uL Hgb (12.0-16.0) g/dL Hct (36-46) % MCV (80-100) fL MCH (26-34) PG MCHC (30-36) % RDW (11.6-14.8) % Plt Count (150-400) X10^3/uL Neut % (Auto) (50-75) % Lymph % (Auto) (25-40) % [place] % (Auto) (3-14) % Eos % (Auto) (2-4) % Baso % (Auto) (0-2) % Neut # (Auto) (2027-6546) /uL Lymph # (Auto) (6711-2560) /uL [place] # (Auto) (0-900) /uL Eos # (Auto) (0-450) /uL Baso # (Auto) (0-100) /uL PT (10.1-12.7) SECONDS INR (0.9-1.3) APTT (26-36) SECONDS Sodium 133 L (137-145) mmol/L Potassium 4.0 (3.4-5.1) mmol/L Chloride 94 L (98-107) mmol/L Carbon Dioxide 29 (22-32) mmol/L BUN 12 (7-17) mg/dL Creatinine 0.68 (0.52-1.04) mg/dL Estimated GFR > 60 (>60) mL/min BUN/Creatinine Ratio 17.6 (6-22) Glucose 118 H (80-110) mg/dL Calcium 9.3 (8.4-10.2) mg/dL Magnesium 1.6 (1.6-2.3) mg/dL Total Bilirubin 0.5 (0.2-1.3) mg/dL AST 26 (14-36) IU/L ALT 24 (<35) IU/L Alkaline Phosphatase 75 (38-126) U/L Total Creatine Kinase 34 (30-135) U/L CK-MB (CK-2) TNP CK-MB (CK-2) Rel Index TNP Troponin I < 0.012 (0.01-0.034) ng/mL Total Protein 7.0 (6.3-8.2) g/dL Albumin 4.3 (3.5-5.0) g/dL Globulin 2.7 (1.7-4.1) g/dL Albumin/Globulin Ratio 1.6 (1.0-2.8) Lipase 670 H (23-300) U/L SARS-CoV-2 (PCR) (Negative) Imaging Data CT scan - head: Radiologist's Impression: Close Head CT (Signed) Isai Deras - 03/15/22 Chest X-Ray (Signed) Rolando Brito - 03/15/22 Shoulder X-Ray (Signed) Isai Deras - 03/03/22 Echocardiogram Ultrasound (Signed) Edison Sewell - 05/17/21 Brain MRI (Signed) Rolando Brito - 05/17/21 Telemetry Strips 05/16/21 Telemetry Strips 05/16/21 Head/Neck CTA (Signed) Ehsan Sim - 05/16/[address] (Addendum) Chago Marin - 05/16/21 Injection Lumbar, Sacrum (Signed) Rolando Brito - 10/21/20 LS Transforaminal Injection (Signed) Ehsan Sim - 09/23/20 Lumbar Spine MRI (Signed) Lorrie Alex - 09/08/20 Lumbar Spine X-Ray (Signed) Ehsan Sim - 06/20/20 Hip X-Ray (Signed) Ehsan Sim - 06/20/20 Head/Neck CTA (Signed) Rolando Brito - 01/28/20 Launch?[place] [address] CT Scan Report Signed Patient: Elsi Sim MR#: [id number] : 1945 Acct:[id number] Age/Sex: 77 / F Date of Service: 03/15/22 Loc: Accession Number: [id number] ?? Procedure: CT head/brain wo con Ordering Provider: Lyle Starkey D.O. PROCEDURE:? CT HEAD/BRAIN WO CON ? INDICATIONS:? HTN, dizziness, CVA 05/29 ? TECHNIQUE:? Noncontrast 4.5 mm thick angled axial sections acquired from the foramen magnum to the vertex, with coronal and sagittal reformats.? For radiation dose reduction, the following was used:? automated exposure control, adjustment of mA and/or kV according to patient size.? ? COMPARISON:? Located Within [facility], MR, MR HEAD/BRAIN WO/W CON, 05/17/2021, 15:55.? Located Within [facility], CT, CT STROKE, 05/16/2021, 19:24.? Located Within [facility], CT, HEAD WITHOUT CONTRAST, 12/08/2016, 7:30. ? FINDINGS:? Image quality:? Excellent.? ? CSF spaces:? Basal cisterns are patent.? No extra-axial fluid collections.? The ventricles are symmetric in size and shape.? ? Brain:? No intracranial bleeds or masses.? There is cerebral volume loss for age, with resultant ventricular and sulcal prominence.? There are periventricular and deep white matter chronic small vessel ischemic changes.? There is intracranial internal carotid artery atherosclerosis.? ? Skull and face:? Left craniotomy changes ? Sinuses:? Visualized sinuses and mastoids are clear.? ? IMPRESSION:? No intracranial hemorrhage or other acute intracranial abnormality. ? ? Dictated by: Isai Deras M.D. on 03/15/2022 at 18:38 ? ? Approved by: Isai Deras M.D. on 03/15/2022 at 18:43 ? Chest x-ray: Radiologist's Impression: [address] [address] XRay Report Signed Patient: Elsi Sim MR#: [id number] : 1945 Acct:[id number] Age/Sex: 77 / F Date of Service: 03/15/22 Loc: ED Accession Number: [id number] ?? Procedure: XR chest 1V Ordering Provider: Yousif Renteria D.O. PROCEDURE:? XR CHEST 1V ? INDICATIONS:? chest pain ? TECHNIQUE:? One view of the chest was acquired.? ? COMPARISON:? Located Within [facility], CR, CHEST 1 VIEW, 12/08/2016, 7:03. ? FINDINGS:? ? Surgical changes and devices:? None.? ? Lungs and pleura:? Lungs are clear.? No pleural effusions or pneumothorax.? ? Mediastinum:? The cardiac contours are within normal limits. The aorta demonstrates calcification and tortuosity. ? Bones and chest wall:? Age-appropriate bony degenerative changes are seen.? No suspicious bony lesions.? Overlying soft tissues appear unremarkable.? IMPRESSION:? Portable chest within normal limits for age. ? ? Dictated by: Rolando Brito M.D. on 03/15/2022 at 16:53 ? ? Approved by: Rolando Brito M.D. on 03/15/2022 at 16:54 ? MDM Narrative Medical decision making narrative: CC: 77-year-old female presents feeling generally unwell for some time, at times dizzy with elevated blood pressure Complicating co-morbidities: Age, stroke, diabetes, cerebral aneurysm Data collected from: Patient Medical records reviewed: Multiple prior notes Differential considered, but not limited to: Hypertension, cardiac disease, stroke, electrolyte abnormality, multifactorial including fatigue, depression, pain, polypharmacy versus other Exam documented above, pertinent findings include: Normal NIH, heart and lung sounds normal Lab Test results independently reviewed as above. Pertinent findings: No elevated white blood cell count or left shift, no significant anemia, electrolytes and renal function within normal, troponin negative. Though patient does have slightly elevated lipase she does not have epigastric pain, radiation to the back, vomiting Independently reviewed EKG as above Imaging studies independently reviewed: CT of head without significant findings, no acute process on chest x-ray Scores Used: HEART, NIHSS Treatments: ASA Re-evaluations: Patient with significant improvement over course of visit wi thout any significant interventions Discussion: 77-year-old female with increasing fatigue and generally feeling unwell for at least the past few weeks in the absence of specific complaints has reassuring physical exam, labs, EKGs and imaging. Multiple causes of chest pain considered including DE, PE, pneumothorax, pneumonia, aortic dissection, and pleurisy. Patient reports no radiation, no diaphoresis, no provocation with exertion, and no vomiting, EKGs nonischemic, troponin negative. Stroke considered but no focal findings, normal head CT and normal NIH. Anemia, signs and fashion, electrolyte abnormalities all also considered but thought unlikely given lack of findings. After extensive discussion it does seem reasonable that these symptoms could be multifactorial with contributions from multiple medications, ongoing chronic shoulder and back pain, poor sleep, mild depression, etc. Disposition: see below, along with detailed discharge instructions that have been reviewed with patient as well as indications for ED re-evaluation and additional outpatient follow up Discharge Plan Departure Patient Disposition: Home Clinical Impression: Fatigue, Hypertension, Chronic right shoulder pain Instructions: High Blood Pressure Activity Restrictions/Additional Instructions: *You have been diagnosed with [generalized fatigue, elevated blood pressure, right shoulder pain. As we discussed your history and physical exam are reassuring, your labs, EKG CT scan showed no sign of any significant abnormality that would require a specific or immediate intervention] *What to do: *Please continue to take your regular medications as directed. [ ] New medication prescriptions sent to your pharmacy: [ ] [ ] New medication written as a paper prescription [x ] No new medications given *Please follow up with your primary care provider in 2-3 days, call for an appointment. Please discuss blood pressure control with them, it is reasonable to leave your medications unchanged today but if your blood pressure continues to run high you will likely need to either change the dosing or type of medication your on Let them know you were seen in the Emergency Department and that we ask that you be seen in follow up. We will electronically transmit a record of today's note if your PCP is in our system * as we discussed please consider wearing your shoulder sling, this will likely help your shoulder pain as much as any medication *Return to Emergency Department if you should have any new, worsening or concerning symptoms, such as [fever greater than 101 F, shaking chills, worsening pain, persistent vomiting or other bothersome symptoms] Prescriptions: No Action cyanocobalamin (vitamin B-12) 5,000 mcg capsule 5,000 mcg PO DAILY lisinopril 40 mg tablet 40 mg PO DAILY Qty: 90 3RF nystatin 100,000 unit/gram cream 1 applic topical BID Qty: 30 1RF Rx Instructions: Apply to affected area twice daily after washing with soap and water. Pat dry. atorvastatin 40 mg tablet See Rx Instructions .ROUTE .COMPLEX Qty: 90 2RF Dose Instruction: take 1 tablet by mouth once daily Rx Instructions: take 1 tablet by mouth once daily albuterol sulfate [ProAir HFA] 90 mcg/actuation HFA aerosol inhaler 2 puff INHALATION Q4-6H PRN (Reason: shortness of breath or wheezing) Qty: 8.5 0RF Rx Instructions: . gabapentin 300 mg capsule 300 mg PO .COMPLEX Qty: 90 2RF Rx Instructions: 1-2 PO Tid to begin at HS and titrate to pain relief celecoxib [Celebrex] 200 mg capsule 200 mg PO DAILY Qty: 30 2RF metformin 500 mg tablet extended release 24 hr See Rx Instructions .ROUTE .COMPLEX Qty: 180 0RF Dose Instruction: TAKE 1 TABLET BY MOUTH 2 TIMES DAILY. Rx Instructions: TAKE 1 TABLET BY MOUTH 2 TIMES DAILY. aspirin 325 mg Tablet,Delayed Release (Dr/Ec) 325 mg PO DAILY Qty: 90 0RF acetaminophen 500 mg capsule 500 mg PO Q6H Referrals: Lilia Toth MD [Primary Care Provider] - Stand Alone Forms: Patient Portal/API
[2022-03-15 19:57] VITALS: BP 189/90; PULSE 74; RESP 24; O2SAT 97
[2022-03-15 20:15] VITALS: O2SAT 96
[2022-03-15 20:16] VITALS: BP 177/74
== END 2022-03-15 20:27 | disposition home or self-care (01) ==
PROVIDERS: Emergency Medicine; Emergency Provider Emergency Medicine; PCP Family Medicine
DX: I10 Essential (primary) hypertension (principal); R07.9 Chest pain, unspecified; M25.511 Pain in right shoulder; R53.83 Other fatigue; Z20.822 Contact with and (suspected) exposure to COVID-19; R42 Dizziness and giddiness; Z86.73 Personal history of transient ischemic attack (TIA), and cerebral infarction without residual deficits
CPT/HCPCS: 36415; 70450; 71045; 80053; 82550; 83690; 83735; 84484; 85025; 85610; 85730; 87635; 99283; 99284; C9803

== ENCOUNTER → 2022-05-06 09:10 | Outpatient (CLI) | payer MEDICARE, MEDICAID, SELFPAY ==
[2021-05-16 22:18] VITALS: BMI 30.9
[2022-05-06 10:22] LABS: Cholesterol 134 mg/dL (140-199); HDL Cholesterol 36 mg/dL (40-60); LDL Cholesterol Calculated 66 mg/dL (<100); Triglycerides 158 mg/dL (35-150)
[2022-05-06 11:09] LABS: Vitamin B12 > 1000 pg/mL (239-931)
[2022-05-06 11:14] LABS: TSH w/ Reflex to FT4 0.91 uIU/mL (0.47-4.68)
[2022-05-06 14:48] LABS: Creatinine Urine Random 100.6 mg/dL
[2022-05-06 14:55] LABS: Microalbumin Urine Random < 0.6 mg/dL (0-1.6)
== END ==
PROVIDERS: PCP Family Medicine; Referring Provider Physician Assistant; Visit Provider Physician Assistant
DX: E11.9 Type 2 diabetes mellitus without complications (principal); E78.5 Hyperlipidemia, unspecified; G62.9 Polyneuropathy, unspecified; I10 Essential (primary) hypertension
CPT/HCPCS: 36415; 80061; 82043; 82570; 82607; 84443

== ENCOUNTER → 2022-05-27 13:56 | Outpatient (CLI) | payer MEDICARE, MEDICAID, SELFPAY ==
[2021-05-16 22:18] VITALS: BMI 30.9
--- NOTE | 2022-05-27 13:57 | DI.MG.S_ITS ---
BILATERAL DIGITAL SCREENING MAMMOGRAM 3D/2D WITH CAD: 05/27/2022 CLINICAL: Routine screening. Baseline exam by default. No prior exams were available for comparison. There are scattered areas of fibroglandular density in both breasts (category b / 25%-50% glandular tissue). Current study was also evaluated with a Computer Aided Detection (CAD) system. There are benign large alvaro-like and round calcifications in both breasts. There is a focal asymmetry in the left breast at 1 o'clock posterior depth. No other significant masses, calcifications, or other findings are seen in either breast. IMPRESSION: INCOMPLETE: NEEDS ADDITIONAL IMAGING EVALUATION The focal asymmetry in the left breast may represent an asymmetric a lymph node and is indeterminate. Additional views with possible ultrasound are recommended. Based on the Tyrer Cuzick model (a risk assessment model) the patient's lifetime risk is 1.4% and her 10 year risk is 0.0%. According to the ACR, ACS, and NCCN guidelines, an annual breast MRI exam along with mammogram is recommended if the patient's lifetime risk is 20% or greater. This exam was interpreted at Station ID: [id number]. NOTE: For mammograms, a report in lay terms will be sent to the patient. Approximately 15% of breast malignancies will not be visualized mammographically. In the management of a palpable breast mass, a negative mammogram must not discourage biopsy of a clinically suspicious lesion. Electronically Signed By: Galina Guerrero M.D. lk/:05/28/2022 11:02:51 letter sent: Additional Imaging Needed ACR BI-RADS Category 0: Incomplete 3340F
--- NOTE | 2022-05-27 13:57 | DI.RAD.S_ITS ---
Bone Density Report Name: MAMTA RICE Age: 77 Sex: Female Ethnicity: White Date of : 1945 Indication: postmenopausal; screening for osteoporosis; Referring Provider: HAILEY WILLIAM Study: Bone densitometry was performed. Exam Date: May 27, 2022 Accession number: [id number] Bone Density: Region BMD T-score Z-score Classification AP Spine(L1-L4) 1.330 2.6 5.0 Normal Femoral Neck (Left) 0.661 -1.7 0.4 Osteopenia Total Hip (Left) 0.953 0.1 1.9 Normal Femoral Neck (Right) 0.637 -1.9 0.2 Osteopenia Total Hip (Right) 0.922 -0.2 1.7 Normal Total Hip Mean 0.937 -0.1 1.8 Normal World Health Organization criteria for BMD impression classify patients as: Normal (T-score at or above -1.0), Osteopenia (T-score between -1.0 and -2.5), or Osteoporosis (T-score at or below -2.5). 10-year Fracture Risk(1): Major Osteoporotic Fracture 12% Hip Fracture 2.8% Reported Risk Factors: [place] (), Neck BMD=0.637, BMI=34.3 (1) FRAX(R) Version 3.08. Fracture probability calculated for an untreated patient. Fracture probability may be lower if the patient has received treatment. Impression: The patient has low bone mass, based on the Right Femoral Neck T-score. The patient has an estimated ten-year risk of hip fracture of 2.8% and an estimated ten-year risk of major fracture of 12%, based on the WHO FRAX algorithm. Discussion: BONE DENSITY IS LOW AT ONE OR MORE SKELETAL SITES. This patient's lowest T-score is low at one or more skeletal sites. It meets the World Health Organization's (WHO) criteria for low bone mass (T-score between -1.0 and -2.5). The patient's 10-year risk of fracture as calculated by FRAX is less than the threshold where pharmacological therapy is recommended by the National Osteoporosis Foundation (NOF). However, all treatment decisions require clinical judgment and consideration of individual patient factors, including patient preferences, comorbidities, previous drug use, risk factors not captured in the FRAX model (e.g., frailty, falls, vitamin D deficiency, increased bone turnover, interval significant decline in bone density) and possible under or overestimation of fracture risk by FRAX. The patient should follow a healthful lifestyle (good nutrition with adequate calcium and vitamin D, and appropriate weight-bearing exercise). Follow-Up: Consider repeating this study in 2 to 3 years to reassess this patient's status, or sooner if there is some new clinical indication. Reported by: ELIUD PERDUE M.D. on 05/28/2022 11:03:00 AM.
== END ==
PROVIDERS: PCP Family Medicine; Referring Provider Physician Assistant; Visit Provider Physician Assistant
DX: Z12.31 Encounter for screening mammogram for malignant neoplasm of breast (principal); Z78.0 Asymptomatic menopausal state; Z13.820 Encounter for screening for osteoporosis; M85.851 Other specified disorders of bone density and structure, right thigh
CPT/HCPCS: 77063; 77067; 77080

== ENCOUNTER → 2022-06-10 08:47 | Outpatient (CLI) | payer MEDICARE, MEDICAID, SELFPAY ==
[2021-05-16 22:18] VITALS: BMI 30.9
--- NOTE | 2022-06-10 08:48 | DI.MG.S_ITS ---
UNILATERAL LEFT DIGITAL DIAGNOSTIC MAMMOGRAM 3D/2D WITH ADDITIONAL VIEWS: 06/10/2022 CLINICAL: Additional evaluation requested from prior study. Comparison is made to exam dated: 05/27/2022 mammogram - [facility]. There are scattered areas of fibroglandular density in the left breast (category b / 25%-50% glandular tissue). \ There is a focal asymmetry in the left breast at 1 o'clock posterior depth. This is seen in additional views. No other significant masses or calcifications are seen in the breast. There are secretory and rim calcifications in the left breast, benign morphology. IMPRESSION: INCOMPLETE: NEEDS ADDITIONAL IMAGING EVALUATION The focal asymmetry in the left breast is indeterminate. An ultrasound is recommended. Based on the Tyrer Cuzick model (a risk assessment model) the patient's lifetime risk is 1.4% and her 10 year risk is 0.0%. According to the ACR, ACS, and NCCN guidelines, an annual breast MRI exam along with mammogram is recommended if the patient's lifetime risk is 20% or greater. This exam was interpreted at Station ID: [id number]. NOTE: For mammograms, a report in lay terms will be sent to the patient. Approximately 15% of breast malignancies will not be visualized mammographically. In the management of a palpable breast mass, a negative mammogram must not discourage biopsy of a clinically suspicious lesion. Electronically Signed By: Dalton Vasquez M.D. lc/:06/10/2022 10:03:26 ACR BI-RADS Category 0: Incomplete 3340F
--- NOTE | 2022-06-10 08:48 | DI.US.S_ITS ---
LIMITED ULTRASOUND OF LEFT BREAST: 06/10/2022 CLINICAL: Abnormal mammogram left breast. Comparison is made to exams dated: 06/10/2022 mammogram and 05/27/2022 mammogram - [facility]. Color flow and real-time ultrasound of the left breast were performed. Herron scale images of the real-time examination were reviewed. There is a 0.5 cm x 0.3 cm x 0.4 cm suspected oil cyst in the left breast at 1 o'clock middle depth 8 cm from the nipple. This correlates with mammography findings of rim calcifications. Other similar findings are seen at 2:00 and 3:00. IMPRESSION: PROBABLY BENIGN The 0.5 cm x 0.3 cm x 0.4 cm cyst in the left breast is probably an oil cyst and is probably benign at 1:00. This correlates with mammography findings of rim calcifications. Other similar findings are seen at 2:00 and 3:00. This is probably benign. There is no abnormality seen in the left breast to correspond with the mammographic focal asymmetry without calcifications. This is probably benign. A follow-up mammogram and an ultrasound in 6 months is recommended to demonstrate stability. This exam was interpreted at Station ID: [id number]. Electronically Signed By: Dalton Vasquez M.D. lc/:06/10/2022 10:06:56 letter sent: Followup Recommended Ultrasound BI-RADS: 3 Probably benign
== END ==
PROVIDERS: PCP Family Medicine; Referring Provider Physician Assistant; Visit Provider Physician Assistant
DX: R92.8 Other abnormal and inconclusive findings on diagnostic imaging of breast (principal); N64.89 Other specified disorders of breast
CPT/HCPCS: 76642; 77065; G0279

== ENCOUNTER 2022-10-06 07:05 | Emergency (ER) | payer MEDICARE, MEDICAID, SELFPAY ==
[2021-05-16 22:18] VITALS: BMI 30.9
[2022-10-06 07:16] VITALS: BP 132/74; PULSE 83; RESP 12; TEMP 36.4; O2SAT 97; BMI 34.3
--- NOTE | 2022-10-06 07:35 | ED_ITS ---
HPI - Back Pain/Injury General Chief Complaint: Back Pain/Injury Stated Complaint: massive pain in back/Lower Rt ribcage area T-2 Time Seen by Provider: 10/06/22 07:18 Source: patient and family History of Present Illness HPI Narrative: Patient is a 77-year-old female with a longstanding history of back discomfort. She does take gabapentin. She also takes extra-strength Tylenol. She has Voltaren cream at home. She is here for evaluation of approximately 24 hours of right-sided middle back discomfort. Has no specific injury. She did try her gabapentin and Tylenol which she states was the only reason that she was able to get a couple hours of sleep last night. She denies any fevers. Related Data Home Medications Medication Instructions Recorded Confirmed cyanocobalamin (vitamin B-12) 5,000 mcg PO DAILY 11/07/19 05/04/22 5,000 mcg capsule Previous Rx's Medication Instructions Recorded nystatin 100,000 unit/gram topical 1 applic topical BID #30 grams 01/29/21 cream aspirin 325 mg tablet,delayed 325 mg PO DAILY #90 tabs 05/19/21 release albuterol sulfate 90 mcg/actuation 2 puff inhalation Q4-6H PRN 11/04/21 aerosol inhaler (ProAir HFA) shortness of breath or wheezing #8.5 grams metformin 500 mg tablet,extended See Rx Instructions .Route 05/04/22 release 24 hr .COMPLEX #180 tabs lisinopril 40 mg tablet See Rx Instructions .Route 05/20/22 .COMPLEX #90 tabs sodium,potassium,mag sulfates 17.5 See Rx Instructions PO .COMPLEX 06/29/22 gram-3.13 gram-1.6 gram oral soln #354 mL (Suprep Bowel Prep Kit) atorvastatin 40 mg tablet See Rx Instructions .Route 07/01/22 .COMPLEX #90 tabs gabapentin 300 mg capsule 300 mg PO TID pain #90 caps 09/03/22 celecoxib 200 mg capsule (Celebrex) 200 mg PO DAILY #30 caps 09/28/22 cyclobenzaprine 10 mg tablet 10 mg PO TID PRN muscle spasm #21 10/06/22 tabs Allergies Allergy/AdvReac Type Severity Reaction Status Date / Time clopidogrel [From PLAVIX] Allergy Mild thickened Verified 10/06/22 07:20 blood morphine [MORPHINE] Allergy Unknown ITCHING Verified 10/06/22 07:20 oxycodone [From PERCOCET] AdvReac Unknown HIGH BLOOD Verified 10/06/22 07:20 PRESSURE Review of Systems Constitutional Constitutional: Reports system reviewed and no additional complaints, except as documented Musculoskeletal Musculoskeletal: Reports system reviewed and no additional complaints, except as documented Integumentary/Breasts Skin/Breast: Reports system reviewed and no additional complaints, except as documented Neurologic Neurologic: Reports system reviewed and no additional complaints, except as documented Patient History Medical History Acute CVA (cerebrovascular accident) Aneurysm Asthma Cataract (2011) Cervical cancer (1975) Chronic back pain (2009) Chronic headaches Colon polyps (2012) CTS (carpal tunnel syndrome) (2014) Drug resistance Herniated nucleus pulposus, L2-3 left Hypertension (1974) Migraines Spondylolisthesis at L4-L5 level Stroke (2014) T11 vertebral fracture T12 burst fracture Vertigo (2014) Surgical History Anesthesia complication History of cataract removal with insertion of prosthetic lens (2008) Status post delivery (07/09/75) Status post cholecystectomy (1991) Status post hysterectomy (1976) Family History Brother Diabetes mellitus Heart disease Essential hypertension High cholesterol Lung cancer Father Heart disease Essential hypertension Mother Diabetes mellitus Cerebrovascular accident (CVA), unspecified mechanism Heart attack Sister Diabetes mellitus Heart disease Essential hypertension High cholesterol Kidney failure Grandfather No problems noted. Grandmother No problems noted. Grandfather No problems noted. Grandmother No problems noted. Social History marital status: household members: none pets and animals: No education level: high school [employer]regation: Religion other: computer games,play with grandkids,cooking seatbelt use: always water heater temp set < 120 deg: Yes working smoke detector in home: Yes fire extinguisher in home: No carbon monox detector in home: No firearms in home: Yes Smoking Status: Former smoker alcohol intake: former during the past year weight has: remained stable well-balanced diet: about half the time daily servings fruits/ve-4 caffeine: Yes eating out: 4 or more times/week Type(s) of exercise: walking frequency: 3-4 times per week duration: 60-90 minutes/day Smoking Status: Former smoker tobacco type: cigarettes alcohol intake frequency: 0-2 drinks per day Substance Use Type: does not use Exam Initial Vital Signs Initial Vital Signs: Vital Signs Temperature 97.5 F L 10/06/22 07:16 Pulse Rate 83 10/06/22 07:16 Respiratory Rate 12 10/06/22 07:16 Blood Pressure 132/74 10/06/22 07:16 Pulse Oximetry 97 10/06/22 07:16 Oxygen Delivery Method Room Air 10/06/22 07:16 HENMT Head: normal to inspection and normocephalic Resp Effort & Inspection: normal respiratory effort Back/Spine/Pelvis Other: Discomfort to the right thoracic back region with obvious muscle spasms. Neuro General: patient alert and patient awake Course Orders Ordered: Discontinued Medications Cyclobenzaprine HCl (Cyclobenzaprine 10 Mg Tablet) 10 mg PO NOW ONE Stop: 10/06/22 07:36 Vital Signs Vital signs: Vital Signs - 8 hr 10/06/22 07:16 Temperature 97.5 F L Pulse Rate 83 Respiratory Rate 12 Blood Pressure 132/74 Pulse Oximetry 97 Oxygen Delivery Method Room Air MDM - Back Pain/Injury MDM Narrative Medical decision making narrative: Patient has an obvious muscle spasm on her physical exam. There was no indication for radiologic studies. She can continue to take her home medication. A prescription for Flexeril was sent to the pharmacy of her choice. She was given return precautions. Discharge Plan Departure Patient Disposition: Home Clinical Impression: Back muscle spasm Instructions: DI for Back Spasm Activity Restrictions/Additional Instructions: I do recommend that you continue with all of your home medications. You can also try massage in the area of your back. Also light stretching. Take your gabapentin as directed. You can do 1/2 to 1 tablet of the Flexeril/cyclobenzaprine. Like we discussed this medication can make you drowsy. Prescriptions: New cyclobenzaprine 10 mg tablet 10 mg PO TID PRN (Reason: muscle spasm) Qty: 21 0RF No Action metformin 500 mg tablet extended release 24 hr See Rx Instructions .ROUTE .COMPLEX Qty: 180 1RF Dose Instruction: TAKE 1 TABLET BY MOUTH 2 TIMES DAILY. Rx Instructions: TAKE 1 TABLET BY MOUTH 2 TIMES DAILY. cyanocobalamin (vitamin B-12) 5,000 mcg capsule 5,000 mcg PO DAILY nystatin 100,000 unit/gram cream 1 applic topical BID Qty: 30 1RF Rx Instructions: Apply to affected area twice daily after washing with soap and water. Pat dry. albuterol sulfate [ProAir HFA] 90 mcg/actuation HFA aerosol inhaler 2 puff INHALATION Q4-6H PRN (Reason: shortness of breath or wheezing) Qty: 8.5 0RF Rx Instructions: . lisinopril 40 mg tablet See Rx Instructions .ROUTE .COMPLEX Qty: 90 2RF Dose Instruction: take 1 tablet by mouth once daily Rx Instructions: take 1 tablet by mouth once daily sodium,potassium,mag sulfates [Suprep Bowel Prep Kit] 17.5-3.13-1.6 gram recon soln See Rx Instructions PO .COMPLEX Qty: 354 0RF Rx Instructions: take as directed by Physician atorvastatin 40 mg tablet See Rx Instructions .ROUTE .COMPLEX Qty: 90 3RF Dose Instruction: take 1 tablet by mouth once daily Rx Instructions: take 1 tablet by mouth once daily gabapentin 300 mg capsule 300 mg PO TID MDD 6-300mg/24hr Qty: 90 3RF Rx Instructions: THIS MEDICATION CAN BE SEDATING celecoxib [Celebrex] 200 mg capsule 200 mg PO DAILY Qty: 30 2RF aspirin 325 mg Tablet,Delayed Release (Dr/Ec) 325 mg PO DAILY Qty: 90 0RF Referrals: Lilia Toth MD [Primary Care Provider] - Stand Alone Forms: Patient Portal/API
[2022-10-06] MEDS: CYCLOBENZAPRINE 10 MG TABLET PO (07:43)
--- NOTE | 2022-10-06 07:46 | PC.NURSE ---
pt has chronic back pain from two herniated disc but this pain is higher than usual. pt states it hurts mainly when she moves or takes a deep breath. she declines being SOB but states it just hurts with the movement of a big deep breath. no radiation down legs or arms. denies chest pain. patient given flexiril, denies any allergies to this medication. side effects gone over, pt is planning to go home and rest, will have someone with her incase she feels dizzy upon standing.
== END 2022-10-06 08:15 | disposition home or self-care (01) ==
PROVIDERS: Emergency Provider Emergency Medicine; PCP Family Medicine
DX: M62.830 Muscle spasm of back (principal)
CPT/HCPCS: 99283

== ENCOUNTER → 2022-12-20 10:04 | Outpatient (CLI) | payer MEDICARE, MEDICAID, SELFPAY ==
[2021-05-16 22:18] VITALS: BMI 30.9
--- NOTE | 2022-12-20 10:05 | DI.MG.S_ITS ---
UNILATERAL LEFT DIGITAL DIAGNOSTIC MAMMOGRAM 3D/2D SHORT-TERM FOLLOW-UP: 12/20/2022 CLINICAL: Short term follow up for the left breast. Comparison is made to exams dated: 06/10/2022 mammogram and 05/27/2022 mammogram - [facility]. There are scattered areas of fibroglandular density in the left breast (category b / 25%-50% glandular tissue). There is a focal asymmetry in the left breast at upper outer quadrant at 1 o'clock posterior depth, which is stable since prior baseline mammogram 05/27/2022. No other significant masses or calcifications are seen in the breast. IMPRESSION: INCOMPLETE: NEEDS ADDITIONAL IMAGING EVALUATION Left breast upper outer quadrant focal asymmetry, mammographically stable since 05/27/2022. An ultrasound is recommended for further evaluation and is scheduled to immediately follow this examination. Based on the Tyrer Cuzick model (a risk assessment model) the patient's lifetime risk is 1.4% and her 10 year risk is 0.0%. According to the ACR, ACS, and NCCN guidelines, an annual breast MRI exam along with mammogram is recommended if the patient's lifetime risk is 20% or greater. This exam was interpreted at Station ID: [id number]. NOTE: For mammograms, a report in lay terms will be sent to the patient. Approximately 15% of breast malignancies will not be visualized mammographically. In the management of a palpable breast mass, a negative mammogram must not discourage biopsy of a clinically suspicious lesion. Electronically Signed By: Marita Richey M.D., PH.D eb/:12/20/2022 11:08:30 ACR BI-RADS Category 0: Incomplete 3340F
--- NOTE | 2022-12-20 10:05 | DI.US.S_ITS ---
LIMITED ULTRASOUND OF LEFT BREAST: 12/20/2022 CLINICAL: 6 month follow-up of oil-cysts. Comparison is made to exams dated: 12/20/2022 mammogram, 06/10/2022 ultrasound, 06/10/2022 mammogram, and 05/27/2022 mammogram - [facility]. Color flow and real-time ultrasound of the left breast upper outer quadrant were performed. There is a 0.5 x 0.4 x 0.2 cm oval hypoechoic mass with indistinct margins at 1 o'clock, 8 cm from the nipple. There are possible rim calcifications, as before. Previously the mass measures 0.5 cm x 0.3 cm x 0.4 cm on 06/10/2022. There are similar appearing findings at 2 o'clock, 8 cm from the nipple and at 2:30 o'clock, 8 cm from the nipple (previously labeled at 3 o'clock, 8 cm from the nipple). There is a normal appearing lymph node in the left axillary tail, which may correlate with mammographic focal asymmetry. IMPRESSION: PROBABLY BENIGN Left breast 0.5 cm hypoechoic mass with rim calcifications at 1 o'clock with similar findings at 2 and 2:30 o'clock, stable since baseline ultrasound 06/10/2022. Findings likely represent oil cysts and are probably benign. Follow-up left breast ultrasound in 6 months is recommended to demonstrate 1 year stability. Morphologically normal left axillary tail lymph node may correspond to mammographic focal asymmetry seen on baseline mammogram 06/10/2022. Mammographic finding is probably benign. Recommend left breast mammogram in 6 months to demonstrate 1 year stability. Patient will be due for bilateral mammogram at that time. Findings and recommendations were conveyed to the patient during today's evaluation. This exam was interpreted at Station ID: [id number]. Electronically Signed By: Marita Richey M.D., PH.D eb/:12/20/2022 13:14:20 letter sent: Followup Recommended Ultrasound BI-RADS: 3 Probably benign
== END ==
PROVIDERS: PCP Family Medicine; Referring Provider Physician Assistant; Visit Provider Physician Assistant
DX: R92.8 Other abnormal and inconclusive findings on diagnostic imaging of breast (principal); N63.21 Unspecified lump in the left breast, upper outer quadrant
CPT/HCPCS: 76642; 77065; G0279

== ENCOUNTER → 2023-03-09 14:34 | Outpatient (CLI) | payer MEDICARE, MEDICAID, SELFPAY ==
[2021-05-16 22:18] VITALS: BMI 30.9
--- NOTE | 2023-03-09 14:35 | DI.MRI.S_ITS ---
PROCEDURE: MR ANGIO HEAD WO CON INDICATIONS: rule out aneurysm TECHNIQUE: Noncontrast axial 3-D [id number] MR angiogram, with 3-dimensional maximum intensity projection (MIP) reformats of the internal carotid arteries and posterior circulation then performed. COMPARISON: [facility], CT, CT ANGIO HEAD AND NECK, 05/16/2021, 20:17. [facility], MR, MR HEAD/BRAIN WO/W CON, 05/17/2021, 15:55. FINDINGS: Image quality: Excellent. Anterior circulation: Right internal carotid artery is patent. Left internal carotid artery is occluded. Anterior cerebral arteries are patent. Right middle cerebral artery is patent. Left middle cerebral artery is occluded. There is reconstituted flow within the peripheral branches of the left middle cerebral artery. There is a 3 mm diameter focal outpouching of the right supraclinoid internal carotid artery. Posterior circulation: Visualized portions of the vertebral arteries demonstrate normal caliber, and join to form a normal appearing basilar artery. The flow within the posterior cerebral arteries is normal and symmetric. No stenoses, occlusions, or aneurysms. 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 Dictated by: Ramesh Pandey M.D. on 03/09/2023 at 15:59 Approved by: Ramesh Pandey M.D. on 03/09/2023 at 16:02
== END ==
PROVIDERS: PCP Family Medicine; Referring Provider Family Medicine; Visit Provider Family Medicine
DX: I67.1 Cerebral aneurysm, nonruptured (principal); R51.9 Headache, unspecified
CPT/HCPCS: 70544

== ENCOUNTER → 2023-05-12 07:28 | Outpatient (CLI) | payer MEDICARE, MEDICAID, SELFPAY ==
[2021-05-16 22:18] VITALS: BMI 30.9
[2023-05-12 08:10] LABS: Add Manual Diff / Slide Review NO; Basophils Absolute Auto 0 /uL (0-100); Basophils Percent Auto 0.7 % (0-2); Eosinophils Absolute Auto 200 /uL (0-450); Eosinophils Percent Auto 4.2 % (2-4); Hematocrit 37.7 % (36-46); Hemoglobin 12.9 g/dL (12.0-16.0); Lymphocytes Absolute Auto 2100 /uL (1100-4500); Lymphocytes Percent Auto 37.4 % (25-40); Mean Corpuscular HGB Conc 34.1 % (30-36); Mean Corpuscular Hemoglobin 31.9 PG (26-34); Mean Corpuscular Volume 93.5 fL (80-100); Monocytes Absolute Auto 600 /uL (0-900); Monocytes Percent Auto 11.3 % (3-14); Neutrophils Absolute Auto 2600 /uL (1500-7000); Neutrophils Percent Auto 46.4 % (50-75); Platelet Count 235 X10^3/uL (150-400); Red Blood Cell Count 4.04 X10^6/uL (4.0-5.2); Red Cell Distribution Width 13.8 % (11.6-14.8); White Blood Cell Count 5.6 X10^3/uL (4.5-11.0)
[2023-05-12 08:44] LABS: Hemoglobin A1C% w Est Avg Glu 5.8 % (4.0-6.0)
[2023-05-12 08:55] LABS: Alanine Aminotransferase 19 IU/L (<35); Albumin Globulin Ratio 1.5 (1.0-2.8); Alkaline Phosphatase 73 U/L (38-126); Aspartate Aminotransferase 28 IU/L (14-36); BUN Creatinine Ratio 13.8 (6-22); Bilirubin Total 0.7 mg/dL (0.2-1.3); Blood Urea Nitrogen 9 mg/dL (7-17); Calcium 9.4 mg/dL (8.4-10.2); Carbon Dioxide 29 mmol/L (22-32); Chloride 101 mmol/L (98-107); Cholesterol 107 mg/dL (140-199); Estimated Glomerular Filt Rate > 60 mL/min (>60); Globulin 2.6 g/dL (1.7-4.1); Glucose 112 mg/dL (80-110); HDL Cholesterol 34 mg/dL (40-60); HEMOLYSIS < 15 (0-50); LDL Cholesterol Calculated 39 mg/dL (<100); Potassium 5.2 mmol/L (3.4-5.1); Sodium 137 mmol/L (137-145); Total Protein 6.6 g/dL (6.3-8.2); Triglycerides 172 mg/dL (35-150)
[2023-05-12 09:27] LABS: Microalbumin Urine Random < 0.6 mg/dL (0-1.6)
== END ==
PROVIDERS: Physician Assistant; PCP Family Medicine; Referring Provider Family Medicine; Visit Provider Family Medicine
DX: I10 Essential (primary) hypertension (principal); E11.9 Type 2 diabetes mellitus without complications; E78.5 Hyperlipidemia, unspecified; Z86.73 Personal history of transient ischemic attack (TIA), and cerebral infarction without residual deficits
CPT/HCPCS: 36415; 80053; 80061; 82043; 82570; 83036; 85025

== ENCOUNTER → 2023-05-23 13:05 | Outpatient (CLI) | payer MEDICARE, MEDICAID, SELFPAY ==
[2021-05-16 22:18] VITALS: BMI 30.9
--- NOTE | 2023-05-23 13:06 | DI.MG.S_ITS ---
BILATERAL DIGITAL DIAGNOSTIC MAMMOGRAM 3D/2D SHORT-TERM FOLLOW-UP: 05/23/2023 CLINICAL: Short term follow up of the left breast, due for bilateral imaging. Comparison is made to exams dated: 12/20/2022 mammogram, 06/10/2022 mammogram, and 05/27/2022 mammogram - [facility]. There are scattered areas of fibroglandular density in both breasts (category b / 25%-50% glandular tissue). There are benign large alvaro-like round calcifications in the left breast. There is a stable focal asymmetry in the left breast at 1 o'clock posterior depth. No other significant masses, calcifications, or other findings are seen in either breast. IMPRESSION: INCOMPLETE: NEEDS ADDITIONAL IMAGING EVALUATION The focal asymmetry in the left breast is indeterminate. A targeted ultrasound of the left breast is recommended and will be performed immediately following this exam. Based on the Tyrer Cuzick model (a risk assessment model) the patient's lifetime risk is 1.3% and her 10 year risk is 0.0%. According to the ACR, ACS, and NCCN guidelines, an annual breast MRI exam along with mammogram is recommended if the patient's lifetime risk is 20% or greater. This exam was interpreted at Station ID: [id number]. NOTE: For mammograms, a report in lay terms will be sent to the patient. Approximately 15% of breast malignancies will not be visualized mammographically. In the management of a palpable breast mass, a negative mammogram must not discourage biopsy of a clinically suspicious lesion. Electronically Signed By: Galina Guerrero M.D. lk/:05/23/2023 13:46:00 ACR BI-RADS Category 0: Incomplete 3340F
--- NOTE | 2023-05-23 13:06 | DI.US.S_ITS ---
LIMITED ULTRASOUND OF LEFT BREAST: 05/23/2023 CLINICAL: Patient returns today for 6 month follow up a focal asymmetry in the left breast. Comparison is made to exams dated: 05/23/2023 mammogram, 12/20/2022 ultrasound, 12/20/2022 mammogram, 06/10/2022 ultrasound, 06/10/2022 mammogram, and 05/27/2022 mammogram - [facility]. Color flow and real-time ultrasound of the left breast 1-3 o'clock region were performed on the areas of interest. Herron scale images of the real-time examination were reviewed. There are multiple stable rim calcified oil cysts in the left breast superior lateral quadrant middle depth. These correlate with mammography findings. There also is a stable normal lymph node in the left breast at 1 o'clock posterior depth. IMPRESSION: BENIGN There is no sonographic evidence of malignancy. The multiple stable oil cysts in the left breast superior lateral quadrant middle depth are benign. There is no abnormality seen in the left breast to correspond with the mammography finding. Return to annual mammogram screening schedule is recommended. This exam was interpreted at Station ID: [id number]. Electronically Signed By: Galina ordoñez/:05/23/2023 17:14:32 letter sent: Normal Exam Ultrasound BI-RADS: 2 Benign
== END ==
PROVIDERS: PCP Family Medicine; Referring Provider Family Medicine; Visit Provider Family Medicine
DX: R92.8 Other abnormal and inconclusive findings on diagnostic imaging of breast (principal); N60.02 Solitary cyst of left breast; R92.323 Mammographic fibroglandular density, bilateral breasts; E11.9 Type 2 diabetes mellitus without complications
CPT/HCPCS: 76642; 77066; G0279

== ENCOUNTER → 2024-05-07 09:36 | Outpatient (CLI) | payer MEDICARE, MEDICAID, SELFPAY ==
[2021-05-16 22:18] VITALS: BMI 30.9
[2024-05-07 10:41] LABS: Hemoglobin A1C% w Est Avg Glu 5.7 % (4.0-6.0)
[2024-05-07 10:45] LABS: Alanine Aminotransferase 21 IU/L (<35); Albumin 4.5 g/dL (3.5-5.0); Albumin Globulin Ratio 1.8 (1.0-2.8); Alkaline Phosphatase 80 U/L (38-126); Aspartate Aminotransferase 29 IU/L (14-36); BUN Creatinine Ratio 19.8 (6-22); Bilirubin Total 0.9 mg/dL (0.2-1.3); Blood Urea Nitrogen 16 mg/dL (7-17); Calcium 9.7 mg/dL (8.4-10.2); Carbon Dioxide 27 mmol/L (22-32); Chloride 94 mmol/L (98-107); Cholesterol 107 mg/dL (140-199); Estimated Glomerular Filt Rate > 60 mL/min (>60); Globulin 2.5 g/dL (1.7-4.1); Glucose 96 mg/dL (80-110); HDL Cholesterol 32 mg/dL (40-60); HEMOLYSIS < 15 (0-50); LDL Cholesterol Calculated 47 mg/dL (<100); Sodium 132 mmol/L (137-145); Triglycerides 139 mg/dL (35-150)
[2024-05-07 10:47] LABS: Potassium 5.4 mmol/L (3.4-5.1)
[2024-05-07 16:38] LABS: Creatinine Urine Random 87.08 mg/dL
[2024-05-07 16:44] LABS: Microalbumin Urine Random < 0.6 mg/dL (0-1.6)
== END ==
PROVIDERS: PCP Family Medicine; Referring Provider Family Medicine; Visit Provider Family Medicine
DX: E11.69 Type 2 diabetes mellitus with other specified complication (principal)
CPT/HCPCS: 36415; 80053; 80061; 82043; 82570; 83036

== ENCOUNTER → 2024-05-28 14:21 | Outpatient (CLI) | payer MEDICARE, MEDICAID, SELFPAY ==
[2021-05-16 22:18] VITALS: BMI 30.9
--- NOTE | 2024-05-28 14:22 | DI.MG.S_ITS ---
MM screening mammo BI: 05/28/2024. BI-RADS: 2 CLINICAL: 79-year old female for bilateral screening mammogram. Tyrer-Cuzick lifetime risk of 0.6%. No personal or first-degree family history of breast cancer. PRIOR EXAMS 05/23/2023, 12/20/2022, 06/10/2022, 05/27/2022. MAMMOGRAPHY TECHNIQUE: 2D and 3D (tomosynthesis) digital mammographic views obtained, with additional images as needed for full coverage. Current study was also evaluated with a Computer Aided Detection (CAD) system. DENSITY A. The breasts are almost entirely fatty. MAMMOGRAPHY FINDINGS Bilateral: Benign-appearing calcifications noted. There are no suspicious masses, calcifications, or other findings in the breast. No significant change from comparison. IMPRESSION: * No evidence of malignancy with benign findings. RECOMMENDATIONS Bilateral * Annual screening mammography. OVERALL ASSESSMENT CATEGORY BI-RADS-2: Benign. The [employer] recommends annual screening mammography beginning at age 40 for women with average risk of breast cancer. ELECTRONICALLY SIGNED: Karine Velásquez M.D. on 05/29/2024 at 05:41:52 PM PT Interpreting Station ID: [id number]
[2024-05-28 15:25] LABS: Blood Urea Nitrogen 16 mg/dL (7-17); Calcium 9.3 mg/dL (8.4-10.2); Carbon Dioxide 29 mmol/L (22-32); Chloride 98 mmol/L (98-107); Estimated Glomerular Filt Rate > 60 mL/min (>60); Glucose 193 mg/dL (80-110); HEMOLYSIS < 15 (0-50); Potassium 4.8 mmol/L (3.4-5.1); Sodium 137 mmol/L (137-145)
== END ==
PROVIDERS: PCP Family Medicine; Referring Provider Family Medicine; Visit Provider Family Medicine
DX: Z12.31 Encounter for screening mammogram for malignant neoplasm of breast (principal); R92.313 Mammographic fatty tissue density, bilateral breasts; E87.5 Hyperkalemia
CPT/HCPCS: 36415; 77063; 77067; 80048

== ENCOUNTER → 2024-12-12 10:06 | Outpatient (CLI) | payer MEDICARE, MEDICAID, SELFPAY ==
[2021-05-16 22:18] VITALS: BMI 30.9
[2024-12-12 12:16] LABS: Hemoglobin A1C% w Est Avg Glu 6.1 % (4.0-6.0)
[2024-12-12 13:00] LABS: Alanine Aminotransferase 19 IU/L (<35); Albumin 4.4 g/dL (3.5-5.0); Albumin Globulin Ratio 1.7 (1.0-2.8); Alkaline Phosphatase 82 U/L (38-126); Blood Urea Nitrogen 12 mg/dL (7-17); Calcium 9.2 mg/dL (8.4-10.2); Carbon Dioxide 25 mmol/L (22-32); Chloride 97 mmol/L (98-107); Cholesterol 107 mg/dL (140-199); Estimated Glomerular Filt Rate > 60 mL/min (>60); Globulin 2.6 g/dL (1.7-4.1); Glucose 89 mg/dL (70-99); HDL Cholesterol 40 mg/dL (40-60); HEMOLYSIS < 15 (0-50); Potassium 4.6 mmol/L (3.4-5.1); Sodium 132 mmol/L (137-145); Total Protein 7.0 g/dL (6.3-8.2); Triglycerides 114 mg/dL (35-150)
[2024-12-13 15:12] LABS: Hep C Virus Ab w/Reflex Quant NEGATIVE s/c (NEGATIVE)
== END ==
PROVIDERS: PCP Family Medicine; Referring Provider Family Medicine; Visit Provider Family Medicine
DX: E11.69 Type 2 diabetes mellitus with other specified complication (principal); Z13.9 Encounter for screening, unspecified
CPT/HCPCS: 36415; 80053; 80061; 83036; 86803